=== PATIENT | female | born 1930 | race Caucasian/White ===

== ENCOUNTER 2016-12-20 10:25 | Emergency (ER) | payer MEDICARE, BC ==
[~2016-12-20] VITALS: Ht 170.2 cm; Wt 59.1 kg
[~2016-12-20 10:25] MED LIST: ACTONEL150 MG PO; ADVAIR IH; ALLOPURINOL300 MG PO; AMOXICILLIN/CLA1 TA1 PO; B-121000 MCG PO; BACTRIM DS 8001 TAB PO; CALCIUM 600600 M2 PO; CARDIZEM CD 18180 MG PO; CEPHALEXIN250 M1 PO; CLEOCIN HCL300 MG PO; CYTOTEC 20200 MCG/T1 PO; DAYPRO600 MG PO; DEXAMETHASONE4 MG PO; DIFLUCAN PO; DILANTIN 100MG100 MG PO; DILTIAZEM CD180 MG PO; DITROPAN 5MG TAB5 MG PO; FOLIC ACID 11 MG/TA1 PO; FOLIC ACID1 MG PO; LEVAQUIN 750MG750 M1 PO; LISINOPRIL20 MG PO; LOPRESSOR 225 MG/TAB PO; LORTAB 7.5/5001 TAB PO; LOZOL 2.5M2.5 MG/TAB PO; METHOTREXA2.5 MG/TAB PO; METOPROLOL25 MG PO; MILLIPRED DP5 MG PO; MIRALAX PA17 GM/Dose PO; MISOPROSTOL; MYRBETR25MG PO; NORCO 325 MG-7.1 TAB PO; NYSTATIN 100MU/ML PO; OSCAL 500 TAB500 MG PO; OXYBUTYNIN5 MG PO; PLAVIX 75MG TAB75 MG PO; PRAVACHOL 40MG40 MG PO; PRAVASTATIN40 MG PO; PREDNISONE 5MG5 MG PO; PREDNISONE10 MG PO; PREDNISONE20 MG PO; PRINIVIL10 MG PO; RT ADVAIR 228 DISKUS IH; SENOKOT S 50 MG1 TAB PO; SULFASALAZINE; SYNTHROID0.05 MG/TA PO; SYNTHROID0.1 MG/TAB PO; TESSALON P100 MG/CAP PO; TOPROL XL25 MG PO; TREXALL7.5 MG PO; TYLENOL 325MG325 MG PO; TYLENOL 500MG500 MG PO; ULTRAM 50MG TAB50 MG PO; VASOTEC10 MG PO; VENTOLIN0.09 MG IH; VITAMIN D1000 IU PO; XARELTO STARTER20 MG PO; ZITHROMAX 250M250 MG PO; ZOMETA INJ4 MG/VIAL IV; ZOMETA4 MG/5 ML IV
[2016-12-20 10:31] VITALS: BP 123/63; TEMP 98.6
[2016-12-20 11:25] LABS: ADJUSTED CALCIUM 9.5 mg/dL (8.4-10.2); ALBUMIN 3.9 gm/dL (3.5-5.0); BILIRUBIN,TOTAL 0.6 mg/dL (0.0-1.0); C-REACTIVE PROTEIN 6.1 mg/dL (0.0-0.9); CALCIUM 9.4 mg/dL (8.4-10.2); CREATININE, serum 0.98 mg/dL (0.52-1.25); POTASSIUM 4.3 mmol/L (3.4-5.0); TOTAL PROTEIN 6.8 gm/dL (6.4-8.2)
[2016-12-20 11:33] LABS: MEAN CELL VOLUME 99 fl (80.0-100.0); MEAN CORPUSCULAR HGB CONC 32 g/dl (33.0-37.0); PLATELET COUNT 324 K/mm3 (130-400); RED BLOOD COUNT 3.28 M/mm3 (4.10-5.30); REDCELL DISTRIBUTION WIDTH-CV 15.5 % (11.5-14.5)
[2016-12-20 11:34] LABS: HEMATOCRIT 32.3 % (37.0-47.0); HEMOGLOBIN 10.3 g/dl (12.5-16.0); MEAN CORPUSCULAR HEMOGLOBIN 31 pg (27.0-31.0)
[2016-12-20 11:35] LABS: ADD PATHOLOGY DIFF REVIEW NO
[2016-12-20] MEDS ORDERED: RT ADVAIR 228 DISKUS IH (11:57)
[2016-12-20] MEDS ORDERED: LOZOL 2.5M2.5 MG/TAB PO (11:58)
[2016-12-20] MEDS ORDERED: NORCO 325 MG-7.1 TAB PO (11:58)
[2016-12-20] MEDS ORDERED: MULTIPLE VITAMI1 CAP PO (12:00)
[2016-12-20] MEDS ORDERED: DITROPAN XL10 MG PO (12:01)
[2016-12-20] MEDS ORDERED: ULTRAM 50MG TAB50 MG PO (12:02)
[2016-12-20] MEDS ORDERED: B-121000 MCG PO (12:03)
[2016-12-20] MEDS ORDERED: CEPHALEXIN500 M1 PO (12:03)
[2016-12-20] MEDS ORDERED: PROAIR HFA0.09 MG/AC IH (12:32)
[2016-12-20] MEDS ORDERED: ZITHROMAX Z PA250 MG PO (12:32)
[2016-12-20 13:00] VITALS: PULSE 87
[2016-12-20 13:01] LABS: BAND 6 % (0-10); NEUTROPHILS 75 % (42.0-75.2); TOTAL CELLS COUNTED 100
[2016-12-20 13:02] LABS: ANISOCYTOSIS 1+; PLATELET ESTIMATE INCREASED (NORMAL)
== END 2016-12-20 13:01 | disposition home or self-care (01) ==
LOC: COL.ER 10:25
PROVIDERS: Family Medicine
DX: J20.9 Acute bronchitis, unspecified (principal); M06.9 Rheumatoid arthritis, unspecified
CPT/HCPCS: J0696; Q9967

== ENCOUNTER 2018-07-03 11:47 | Outpatient (RCR) | payer MEDICARE, BC ==
[2018-07-03] VITALS (9 sets, daily range): BP systolic 148–185; BP diastolic 58–90; PULSE 55–92; TEMP 97.1–98.1
[~2018-07-03] VITALS: Ht 170.2 cm; Wt 55.0 kg
[~2018-07-03 11:47] MED LIST changes: +CEPHALEXIN500 M1 PO; +DITROPAN XL10 MG PO; +MULTIPLE VITAMI1 CAP PO; +PROAIR HFA0.09 MG/AC IH; +ZITHROMAX Z PA250 MG PO
[2018-07-03] MEDS ORDERED: VITAMIN D 1001000 IU (17:34)
[2018-07-03] MEDS ORDERED: PREDNISONE10 MG (17:35)
[2018-07-03] MEDS ORDERED: TYLENOL 325MG325 MG PO (17:36)
[2018-07-03] MEDS ORDERED: ZOMETA4 MG/5 ML IV (17:38)
== END 2018-07-03 20:00 | disposition home or self-care (01) ==
LOC: EUO 11:47
DX: C90.01 Multiple myeloma in remission (principal); D63.0 Anemia in neoplastic disease; M06.9 Rheumatoid arthritis, unspecified
CPT/HCPCS: J1644; J7050; P9016

== ENCOUNTER 2018-11-03 13:00 | Outpatient (RCR) | payer MEDICARE, BC ==
[2018-11-03] VITALS (10 sets, daily range): BP systolic 138–184; BP diastolic 67–89; PULSE 66–100; TEMP 97.3–97.8
[~2018-11-03 13:00] MED LIST changes: +PREDNISONE10 MG; +VITAMIN D 1001000 IU
== END 2018-11-03 18:22 ==
LOC: EUO 13:00
DX: C90.00 Multiple myeloma not having achieved remission (principal)
CPT/HCPCS: J1644; J7050; P9040

== ENCOUNTER 2018-11-21 10:15 | Outpatient (RCR) | payer MEDICARE, BC ==
[2018-11-21] VITALS (10 sets, daily range): BP systolic 134–155; BP diastolic 60–97; PULSE 63–77; TEMP 97.5–98.3
[~2018-11-21] VITALS: Ht 170.2 cm; Wt 56.4 kg
== END 2018-11-21 18:00 | disposition home or self-care (01) ==
LOC: EUO 10:15
DX: C90.00 Multiple myeloma not having achieved remission (principal); M06.9 Rheumatoid arthritis, unspecified; D63.8 Anemia in other chronic diseases classified elsewhere
CPT/HCPCS: J1644; J7050; P9016

== ENCOUNTER 2018-11-29 18:56 | Emergency (ER) | payer MEDICARE, BC ==
[~2018-11-29] VITALS: Ht 170.2 cm; Wt 54.5 kg
[2018-11-29 19:05] VITALS: BP 143/73; TEMP 99.7
[2018-11-29] MEDS ORDERED: SYNTHROID0.1 MG/TAB PO (19:20)
[2018-11-29] MEDS ORDERED: VITAMIN D 1001000 IU (19:20)
[2018-11-29] MEDS ORDERED: FOLIC ACID 11 MG/TA1 PO (19:21)
[2018-11-29] MEDS ORDERED: PREDNISONE10 MG PO (19:21)
[2018-11-29] MEDS ORDERED: B-121000 MCG PO (19:22)
[2018-11-29] MEDS ORDERED: TOPROL XL 25MG25 MG PO (19:22)
[2018-11-29] MEDS ORDERED: DITROPAN 5MG TAB5 MG PO (19:22)
[2018-11-29] MEDS ORDERED: TYLENOL 325MG325 MG PO (19:23)
[2018-11-29] MEDS ORDERED: PRAVACHOL 40MG40 MG PO (19:23)
[2018-11-29] MEDS ORDERED: METHOTREXA2.5 MG/TAB PO (19:24)
[2018-11-29] MEDS ORDERED: ZOMETA4 MG/5 ML IV (19:24)
[2018-11-29] MEDS ORDERED: VENTOLIN0.09 MG IH (19:24)
[2018-11-29 21:00] VITALS: PULSE 76
== END 2018-11-29 21:07 | disposition home or self-care (01) ==
LOC: COL.ER 18:56
DX: S22.32XA Fracture of one rib, left side, initial encounter for closed fracture (principal); S51.012A Laceration without foreign body of left elbow, initial encounter; I10 Essential (primary) hypertension; E03.9 Hypothyroidism, unspecified; J45.909 Unspecified asthma, uncomplicated; M06.9 Rheumatoid arthritis, unspecified; Z87.891 Personal history of nicotine dependence; W07.XXXA Fall from chair, initial encounter; Y93.E1 Activity, personal bathing and showering; Y92.002 Bathroom of unspecified non-institutional (private) residence as the place of occurrence of the external cause

== ENCOUNTER 2019-01-24 12:45 | Outpatient (RCR) | payer MEDICARE, BC ==
[~2019-01-24 12:45] MED LIST changes: +TOPROL XL 25MG25 MG PO
== END 2019-04-02 | disposition home or self-care (01) ==
LOC: WSPT
DX: M06.9 Rheumatoid arthritis, unspecified (principal)

== ENCOUNTER 2019-06-25 10:14 | Emergency (ER) | payer MEDICARE, BC ==
[~2019-06-25] VITALS: Ht 157.5 cm; Wt 52.7 kg
[~2019-06-25 10:14] MED LIST changes: +SYNTHROID0.088 MG/T PO; +VITAMIN D 1001000 IU PO
[2019-06-25 11:04] LABS: MEAN CELL VOLUME 95 fl (80.0-100.0); MEAN CORPUSCULAR HGB CONC 32 g/dl (33.0-37.0); MEAN PLATELET VOLUME 8.5 fl (7.4-10.4); PLATELET COUNT 372 K/mm3 (130-400); RED BLOOD COUNT 2.91 M/mm3 (4.10-5.30); REDCELL DISTRIBUTION WIDTH-CV 18.3 % (11.5-14.5)
[2019-06-25 11:07] LABS: HEMATOCRIT 27.6 % (37.0-47.0); HEMOGLOBIN 8.7 g/dl (12.5-16.0); MEAN CORPUSCULAR HEMOGLOBIN 30 pg (27.0-31.0)
[2019-06-25 11:14] LABS: ALBUMIN 3.3 gm/dL (3.5-5.0); BILIRUBIN,TOTAL 0.4 mg/dL (0.0-1.0); CALCIUM 8.6 mg/dL (8.4-10.2); CREATININE, serum 0.78 (0.52-1.25); POTASSIUM 4.3 mmol/L (3.4-5.0); TOTAL PROTEIN 5.8 gm/dL (6.4-8.2)
[2019-06-25 12:32] LABS: BAND 1 % (0-10); EOSINOPHIL 3 % (0-4); LYMPHOCYTE 11 % (20.0-51.0); NEUTROPHILS 80 % (42.0-75.2); PLATELET ESTIMATE NORMAL (NORMAL); SCHISTOCYTES 2+
[2019-06-25 12:33] LABS: OVALOCYTES 2+
[2019-06-25 12:44] LABS: COLLECTION METHOD CLEAN CATCH
[2019-06-25 12:55] LABS: MUCOUS Present /lpf; PH 6 (5-8); SQUAMOUS EPITHELIAL 0-2 /hpf; URINE APPEARANCE Clear; URINE BACTERIA Rare /hpf; URINE BILIRUBIN Negative (NEGATIVE); URINE BLOOD Negative (NEGATIVE); URINE COLOR Yellow; URINE GLUCOSE Negative (NEGATIVE); URINE KETONE Trace (NEGATIVE); URINE LEUKOCYTE ESTERASE 1+ (NEGATIVE); URINE NITRATE Positive (NEGATIVE); URINE PROTEIN(semi-quant) Negative (NEGATIVE); URINE RBC 0-2 /hpf; URINE UROBILINOGEN Negative (NEGATIVE)
[2019-06-25] MEDS ORDERED: CEFTIN 250250 MG/TAB PO ×2 (14:04→15:04)
--- NOTE | 2019-06-25 14:53 | NUR ---
JOANNE acosta responded to a social service consult for the patient due to her feeling too weak to return home. JOANNE acosta met with the patient to discuss care options. Physical therapy met with the patient and reports the patient is appropriate for IPR or long term. The patient chose [facility] 1st choice and [facility] (private pay) 2nd choice. Marina, IPR Director met with the patient and will accept the patient for services. The patient was agreeable to going upstairs, this day. JOANNE acosta and Marina collaborated the above information with the patient's nurse.
[2019-06-25 17:00] VITALS: BP 134/72; PULSE 89
[2019-06-25] MEDS ORDERED: LOPRESSOR 225 MG/TAB PO (19:50)
[2019-06-25] MEDS ORDERED: DITROPAN XL10 MG PO (19:52)
[2019-06-25] MEDS ORDERED: ZESTRIL 10MG10 MG PO (20:01)
[2019-06-25] MEDS ORDERED: OYSTER SHELL C500 MG PO (20:05)
[2019-06-25] MEDS ORDERED: ACTONEL150 MG PO (20:06)
== END 2019-06-25 17:00 | disposition home or self-care (01) ==
LOC: COL.ER 10:14
PROVIDERS: Physician Assistant
DX: N39.0 Urinary tract infection, site not specified (principal); D64.9 Anemia, unspecified; E03.9 Hypothyroidism, unspecified; Z90.49 Acquired absence of other specified parts of digestive tract
CPT/HCPCS: A4216; J0696; J7030

== ENCOUNTER 2019-06-25 15:46 | Inpatient (IN) | payer MEDICARE, BC ==
[~2019-06-25] VITALS: Ht 167.6 cm; Wt 53.6 kg
[~2019-06-25 15:46] MED LIST changes: +CEFTIN 250250 MG/TAB PO
[2019-06-25 17:21] VITALS: BP 143/85; PULSE 105; TEMP 98.1
--- NOTE | 2019-06-25 18:10 | NUR ---
Report from BOB Loving RN, pt arrived via wheelchair and aid(s) assisted pt to bed, turned bed alarm on, introduced self to pt, she is alert, pleasant, seems oriented and without confusion. Provided water, pt states she is a DNR.
[2019-06-25] MEDS ORDERED: LOPRESSOR 225 MG/TAB PO (19:50)
[2019-06-25] MEDS ORDERED: DITROPAN XL10 MG PO (19:52)
--- NOTE | 2019-06-25 20:00 | NUR ---
PATIENT RESTING IN BED REQUESTING TYLENOL WHEN AVAILABLE DUE TO C/O ARTHRITIC PAIN TO BLE CURRENTLY. BED ALARM ON.
[2019-06-25] MEDS ORDERED: ZESTRIL 10MG10 MG PO (20:01)
[2019-06-25] MEDS ORDERED: OYSTER SHELL C500 MG PO (20:05)
[2019-06-25] MEDS ORDERED: ACTONEL150 MG PO (20:06)
--- NOTE | 2019-06-25 20:18 | NUR ---
Clarified questions on meds with patient. She states she did not take her methotrexate today. States she takes six tabs every Tuesday. States she takes B12 Wednesdays. States she takes folic acid daily.
--- NOTE | 2019-06-26 00:58 | NUR ---
RESTING ON LEFT SIDE, PILLOW TO BACK PER PATIENT REQUEST FOR SUPPORT. DOES NOT AROUSE WHEN ROOM ENTERED. BREATHING NONLABORED AND EVEN. BED ALARM ON.
--- NOTE | 2019-06-26 01:49 | NUR ---
PATIENT CALLING OUT, WANTING HELP FROM NURSE, CALL LIGHT UNDER RIGHT HAND BUT PATIENT NOT HOLDING CALL LIGHT. REPOSITIONED INTO SUPINE POSITIONING. ENCOURAGED PATIENT TO HOLD DRINKING CUP, DOES NOT ATTEMPT TO HANDLE CUP HERSELF AT THIS TIME. FOLLOWS COMMANDS AT THIS TIME.
[2019-06-26 05:22] VITALS: BP 143/61; PULSE 86; TEMP 97.9
--- NOTE | 2019-06-26 05:45 | NUR ---
RESTING QUIETLY IN BED. BED ALARM ON.
--- NOTE | 2019-06-26 06:11 | NUR ---
PATIENT REFUSED TO HAVE SALINE LOCK REMOVED AT THIS TIME.
--- NOTE | 2019-06-26 07:00 | NUR ---
awake and sitting up in bed ready for breakfast, bedside shift report received from MARCELLO Valentino
--- NOTE | 2019-06-26 07:05 | NUR ---
Patient resting in bed quietly during shift change report given to day nurse. Bed alarm on.
--- NOTE | 2019-06-26 08:15 | NUR ---
resting in bed and requesting to get up to void, with max assist of 2 she was able to get up to bedside commode but had much difficulty standing and moving to commode and then to recliner, full assessment completed see interventions for further info, bilateral lower extremities very dry and scaley, has 1.5 stage II pressure ulcer on right medial ankle bone and covered with mepiplex, also has 1cm stage II ulcer to first toe on the right foot and appears to have open area between great toe and first toe but unable to move toes apart to assess well, patient states Dr Chatterjee has been assisting her with healing these wounds, bandaid placed over toe, also has stage I ulcer to left heel and mepiplex placed, physical therapy then in to work with patient and she was able to stand and ambulate to door with only 1 assist
--- NOTE | 2019-06-26 10:18 | NUR ---
occupational therapy in to work with patient and assist with bathing
--- NOTE | 2019-06-26 11:52 | NUR ---
patient states she has been incontinent of urine, encouraged her to call when she needs to void and we will help her up, verbalizes understanding, incontinent care provided, sitting up in chair eating lunch
--- NOTE | 2019-06-26 13:09 | NUR ---
occupational therapy in to work with patient
--- NOTE | 2019-06-26 13:59 | NUR ---
JAY JAY met with the patient to complete initial intake, as the patient is new to [facility]. The patient lives in [place] with her , Aakash (ph#[phone]). She reports needing some assistance with ADLs prior to [facility] and has 2-3 walkers and a chair lift for their stairs. She states that her provides her with assistance for ADLs. The patient's PCP is Dr. Min Chatterjee and she receives her medications at [facility]. She reports no difficulties obtaining her meds. The patient does not have advanced directives in EMR, but she states that she does have them completed and that her is her DPOA-HC. A family meeting with her was tentatively scheduled for tomorrow at 1400. The patient reports that she would like to speak to her about the this and can notify JAY JAY if this time does not work. JAY JAY provided the patient with JAY JAY's phone number. JAY JAY had received a phone call from Uzma at [facility]. Uzma reports that the patient's PCP had been working with them to get the patient set up with their services. She states that they would be able to pick her up when ready to discharge from [facility]. JAY JAY informed the patient of this and will continue to follow.
--- NOTE | 2019-06-26 14:33 | NUR ---
worked with occupational therapy and assisted with getting dressed
--- NOTE | 2019-06-26 15:05 | NUR ---
physical therapy in to work with patient
[2019-06-26 18:15] VITALS: BP 119/56; PULSE 86; TEMP 98
--- NOTE | 2019-06-26 20:45 | NUR ---
Patient rests in bed reading. Disoriented to place and keeps inquiring why she can't go upstairs to her bedroom tonight. Attempts to reorient and explain DX and needing ABT and therapy to regain strength. Pleasant. Asks where her is and reviewed he's at home and offered to assist to call him. Patient reports she knows he's at home and has talked with him recently. Legs are very dry/reddened and scaly and lotion applied states she's seen Dr. Chatterjee and [facility] for years for sores on feet-"don't seem to get better though". Heel protectors applied and bandaid removed right second toe sore and cleansed with saline-1 cm in diameter red center and scant yellow drainage. Vertical sore noted to inner left great toe and cleansed with saline/whitish center. Heels floated on pillow. HS meds along with tylenol per request reviewed and given. Denies pain at this time.
--- NOTE | 2019-06-26 22:44 | NUR ---
Patient rests with eyes closed on left side. Respirations with ease.
--- NOTE | 2019-06-27 03:00 | NUR ---
Patient continues resting quietly on left side with eyes closed. Respirations with ease.
[2019-06-27 04:21] VITALS: BP 123/63; PULSE 63; TEMP 97.7
--- NOTE | 2019-06-27 09:04 | NUR ---
Report from MARCELLO Mueller. Pt took pills a few at a time with thin liquids with difficulty swallowing them, provided applesauce and crackers at bedside if needed. Pt sitting bedside with glasses and yellow grippers in place. Tylenol for pain.
--- NOTE | 2019-06-27 09:42 | NUR ---
JAY JAY followed up with the patient about having a family meeting at 1400 today. The patient reports that she did not have a chance to speak to her and was okay with SW contacting her . JAY JAY contacted the patient's , Aakash, and the family meeting was scheduled for 1400 today. SW to continue to follow.
--- NOTE | 2019-06-27 16:05 | NUR ---
SW attended a family meeting with patient and the patient's , Aakash. Also present was IPR Director, PT, OT, and ST. IPR Director, Marina, started by explaining the purpose of the meeting. PT/OT/ST then discussed the patient's progress and addressed the patient's confusion. The patient's reports that he is aware that she have been a bit more confused lately. He states that he is not as strong as he used to be and cannot lift her up or would be able to help her out as much as he used to. Marina discussed how we would re-evaluate the patient next Tuesday. The patient and her were in agreeance to this plan. The team answered all questions. JAY JAY then followed up with the patient to present and review the IPR Team Conference Note. The patient had no other questions or concerns for SW at this time. SW to continue to follow.
[2019-06-27 16:52] VITALS: BP 124/56; PULSE 94; TEMP 98.2
--- NOTE | 2019-06-27 19:40 | NUR ---
WOUND ASSESSMENT: Left le) Lateral ankle 0.8 cm round wound with yellow slough. Applied silver gauze, mepilex, dated. 2) Lateral heel ~1cm dry scab. Heel protector under socks 3) Lateral foot, proximal to pinky toe ~1cm dry scab 4) Tip of great toe non-blanchable, applied telfa w/ paper tape. Right le) Medial ankle 1.2 x 2 cm shallow ulcer with yellow slough, cleansed with bath wipe, applied silver gauze, mepilex, dated. 6) Second toe open, bleeding sore, silver gauze secured with steris, telfa secured with steris. 7) Under great toe: ~1 cm dry scab 8) Between toes 3&4: yellow odorous slough removed with bath wipe, applied silver gauze 9) Between toes 4&5: yellow odorous slough removed with bath wipe, applied silver gauze
--- NOTE | 2019-06-27 19:45 | NUR ---
Report to MARCELLO Mueller. Pt to chair with call lt in reach, pleasantly confused at time, re-orients well. Yellow gripper socks over heel protectors in place. Pt pleasant. Pt also had a scab on the left side of her sikh that she scratched part way off. Applied lotion to soften.
--- NOTE | 2019-06-27 20:45 | NUR ---
Patient resting in bed with eyes closed. Woke patient up for HS meds and tylenol given per request prior to sleep. Denies pain at this time. Heel protectors on and heels floated on pillow. Alert to person, place, time of day but not to year. Pleasant.
--- NOTE | 2019-06-28 02:00 | NUR ---
Rests with eyes closed. Respirations with ease.
[2019-06-28 05:31] VITALS: BP 133/79; PULSE 68; TEMP 97.7
--- NOTE | 2019-06-28 09:19 | NUR ---
Initial visit; Patient thanked Sander Setter for looking in on her and offering spiritual care.
--- NOTE | 2019-06-28 09:33 | NUR ---
Patient working with OT at this time. Reports generalized aching and given prn Tylenol. Patient is not confused this morning. She is alert to surrounding, year, month, , name and location. She was confused about when she arrived to [facility] though. Denies questions at this time.
--- NOTE | 2019-06-28 10:06 | NUR ---
Patient received a k-pad to help to keep her warm. She reported that her room was very cold. This will be discussed with maintenance.
--- NOTE | 2019-06-28 10:11 | NUR ---
Call placed to maintenance regarding room being too cold. A new work order was placed. Patient reports that she is use to a temp of 72 degrees, but wouldl like her room to be warmer then it currently is.
--- NOTE | 2019-06-28 13:44 | NUR ---
Maintenance adjusted temperture in patient room. Patient was updated on this. She is to notify staff if it needs to be adjusted again.
--- NOTE | 2019-06-28 15:32 | NUR ---
Patient reported that she had been asked multiple times about her code status and she has for sure chosen to be a DNR. DNR sticker was placed on patient chart and is in the EMR. Patient's also clarified that she does have an allergy from years ago to Codeine and pseudoephedrine. Front of patient's physical chart was update.
--- NOTE | 2019-06-28 16:05 | NUR ---
Admission QIM scores were reviewed by the team. Code of 1 chosen for toilet transfers was determined by team discussion to be the most usual performance before interventions for this patient during the assessment period. Code of 3 chosen for rolling left to right was determined by team discussion to be the most usual performance for this patient during the assessment period. Code of 3 chosen for sit to lying was determined by team discussion to be the most usual performance before interventions for this patient during the assessment period. Code of 3 chosen for lying to sitting on side of bed was determined by team discussion to be the most usual performance before interventions for this patient during the assessment period.--Marina Moreno, PD
[2019-06-28 18:36] VITALS: BP 101/46; PULSE 95; TEMP 98.1
--- NOTE | 2019-06-28 21:00 | NUR ---
PT SITTING IN RECLINER. WATCHING TV. PLEASANT AND COOPERATIVE. ALITTLE FORGETFUL. THOUGHT IT WAS THE YEAR 2026. PORTHACATH TO RT CHEST. NOT ACCESSED. MUTLIPLE DRSGS TO BILAT FEET/ ANKLES. CDI. PT ADMITS TO SOME ACHINESS. TOO SOON FOR TYLENOL. REVIEWED SAFETY PRECAUTIONS WITH PT. AGREEABLE. CALL LIGHT IN REACH. BED ALARM SET.
[2019-06-29 06:14] VITALS: BP 138/62; PULSE 77; TEMP 97.7
[2019-06-29 07:44] LABS: BASO # 0.1 (0.0-0.2); BASO % 0.8 % (0.0-2.0); EOS # 0.2 (0.0-0.7); GRAN % 75.2 % (42.2-75.2); LYMPH # 1.1 (1.2-3.4); LYMPH % 10.4 % (20.0-51.0); MEAN CELL VOLUME 95 fl (80.0-100.0); MEAN CORPUSCULAR HGB CONC 32 g/dl (33.0-37.0); MEAN PLATELET VOLUME 8.7 fl (7.4-10.4); MONO # 1.1 (0.1-0.6); MONO % 10.8 % (1.7-9.3); PLATELET COUNT 409 K/mm3 (130-400); RED BLOOD COUNT 2.97 M/mm3 (4.10-5.30); REDCELL DISTRIBUTION WIDTH-CV 18.6 % (11.5-14.5)
[2019-06-29 07:45] LABS: HEMATOCRIT 28.2 % (37.0-47.0); HEMOGLOBIN 8.9 g/dl (12.5-16.0); MEAN CORPUSCULAR HEMOGLOBIN 30 pg (27.0-31.0)
[2019-06-29 07:57] LABS: CALCIUM 9.1 mg/dL (8.4-10.2); CREATININE, serum 0.75 (0.52-1.25); MAGNESIUM 1.9 mg/dL (1.6-2.3)
--- NOTE | 2019-06-29 08:32 | NUR ---
Patient resting in recliner at this time, call light in reach and chair alarm on. Patient in pleasent mood.
[2019-06-29 15:52] VITALS: BP 114/56; PULSE 91; TEMP 97.8
--- NOTE | 2019-06-29 16:58 | NUR ---
JAY JAY met with the patient and her , Ed, to follow up. The patient reports that she is doing well and making some progress. She states that she is very pleased with her stay here. The patient and her had no other questions or concerns at this time. SW to continue to follow.
--- NOTE | 2019-06-29 20:56 | NUR ---
Patient resting in bed at this time. She attended all therapies today. She was complaining of generalized pain this shift and given prn Tylenol with good effect. Patient was not using call light this afternoon and thought at one time that staff had all gone for the day. She was asking visitors to help her with picking up her meal and taking her to the bathroom. This nurse over heard patient talking with visitors when taking care of patient in room next to hers and went over to her room and assisted her immediatly. Patient was reoriented to place and was asured that she staff was available to assist her, but that she would need to use her call light. She voiced understanding. Will continue to monitor. Reported off to night nurse.
--- NOTE | 2019-06-29 21:30 | NUR ---
PT SITTING IN RECLINER. PLEASANT AND COOPERATIVE. TAKES PILLS WHOLE WITH H20. PT HAS A THERMOS CUP WITH LID. ASKED PT WHAT SHE WAS DRINKING FROM THIS CONTAINER. PT REPLIED ALITTLE WHITE WINE. PT REPORTED HER BROUGHT IT IN FOR HER. REMOVED CUP AT THIS TIEM. WILL HAVE DON SPEAK WITH . ASSISTED PT WITH UNDRESSING. ALLOW PT TO REMOVE UB CLOTHING PER SELF. THIS NURSEHAD TO LEAVE ROOM FOR A FEW MINUTES. CHAIR ALARM SOUNDING. PT GOT UP FROM RECLINER. EASY FORGETFUL. CONTINUED TO ASSIST PT WITH THREADING LEGS INTO PANTS. THEN PT STOOD UP SLOWLY WHILE NURSE PULLED PANTS UP OVER HIPS. PT WEARS BRIEFS IN OCCASIONAL INCONTINENCE. NOTED SIGNIFICANT KYPHOSIS. PT AMB SLOWLY TOWARD BED. NEEDED ASSISTANCE LIFTING LEGS. CALL LIGHT IN REACH. BED ALARM SET.DENIES ANY FURTHER NEEDS.
[2019-06-30 03:59] VITALS: BP 132/58; PULSE 67; TEMP 97
--- NOTE | 2019-06-30 14:44 | NUR ---
0800SHE WAS GOTTEN READY BY STAFF. 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 SHE IS ABLE TO STAND AND AMBULATE. GAIT IS STEADY WITH THE WALKER. PT SHOWERED WITH OT. 0900OT LET NURSE KNOW THAT PT WAS READY TO GET HER DRESSING ON HER FEET CHANGED. NURSE CHANGED DRESSING TO RIGHT SECOND TOE. AREA LOOKS LIKE AN ABRASION. HERE TOES ARE ALL BENT UNDER THE FEET. THERE IS AQUA CELL BETWEEN HER 4TH AND 5TH TOES. ON THE LEFT FOOT THERE IS AN ABRASION TO THE GREAT TOE. DRESSING WAS CHANGED. 1230PT STARTED TO EAT HER MEAL. SHE ATE MOST OF THE MEAL, THEN ASKED FOR A FIONA CRACKER. 1300PT SLEEPING IN HER CHAIR. SHE WAS CHECKED ON SEVERAL TIMES. SHE SEEMS COMFORTABLE. 1330GIVEN LOVENOX INJECTION IN ABDOMEN. NO BRUISING NOTED TO AREA. ASKED PT IF SHE WANTED TO GET INTO BED, REFUSED. ASKED PT IF SHE WANTED TO HAVE HER LEGS UP, REFUSED. 1500FAMILY HERE TO VISIT.
[2019-06-30 17:46] VITALS: BP 120/62; PULSE 84; TEMP 97.4
--- NOTE | 2019-06-30 21:51 | NUR ---
Pt doing ok. Alert and oriented with VSS. Took PM meds with no issue. Transferred to bed x1 assist. Heel protectors in place. Denies pain or needs at this time. Call light within reach, will continue to monitor
[2019-07-01 05:00] VITALS: BP 150/60; PULSE 86; TEMP 97.9
--- NOTE | 2019-07-01 10:42 | NUR ---
PT WAS GOTTEN OUT OF BED BY STAFF. SHE MOVES WELL ONCE SHE GETS UP. SHE IS A ONE ASSIST TO TRANSFER FROM BED TO BR AND CHAIR. PT CAN CLEAN HERSELF AFTER VOIDING. SHE CHOSES TO STAY IN [facility] TODAY.SHE CAN OPEN ALL HER MEAL CARTONS WITHOUT ASSIST,S SET UP ONLY. SHE IS IN RECLINER WITH CALL LIGHT IN REACH.
--- NOTE | 2019-07-01 11:33 | NUR ---
TYLENOL 650 MG GIVEN FOR LEFT HIP PAIN, 10/25. NURSE COULD HERE THE HIP POPPING.
[2019-07-01 17:01] VITALS: BP 118/50; PULSE 91; TEMP 97.7
--- NOTE | 2019-07-01 18:19 | NUR ---
JUST ASSISTED PT INTO BR. SHE HAS SOME DIFFICULTY STANDING AT FIRST. BUT AFTER YOU STEADY HER SHE TAKES OFF AND DOES PRETTY WELL. HER GAIT IS SHUFFULING BUT STEADY. PT HAD A LARGE SOFT FORMED BM. PT SEEMS A LITTLE CONFUSED. PT IS SETTLED IN HER CHAIR WITH HER PJ BOTTOMS ON. SKIN IS PINK ON HER BOTTOM FROM THE TOILET. CALL LIGHT IN REACH.
--- NOTE | 2019-07-01 21:00 | NUR ---
PT SITTING IN RECLINER. AGREED TO AMB IN [place]ART[place]. NOTED SIGNIFICANT KYPHOSIS WITH POSTURE. ABLE TO STAND WITH SBA. FEET ARE DISFIGURED FROM ARTHRITIS. DIFFICULT TO AMB. AMB WITH WHEELED WALKER ABOUT 25FT AND BACK. BACK TO RECLINER. HAD TO STOP OCCASIONALLY TO CATCH HER BREATH. CALL LIGHT IN REACH. CHAIR ALARM SET.
--- NOTE | 2019-07-01 22:32 | NUR ---
PT VOIDING W/O DIFFICULTY. NO BURNING, FREQUENCY OR URGENCY. URINE CLEAR YELLOW. NO FLANK PAIN. AFEBRILE.
[2019-07-02 04:52] VITALS: BP 158/83; PULSE 74; TEMP 97.4
--- NOTE | 2019-07-02 12:11 | NUR ---
Informed that pt had wine in the room the other night, and that this is not acceptable. He denies bringing her any, states it may have been from one of her other visitors.
--- NOTE | 2019-07-02 12:48 | NUR ---
Pt reported nausea this morning, states no problem now. Took morning meds at this time.
--- NOTE | 2019-07-02 13:56 | NUR ---
SW met with the patient to follow up after the weekend. The patient was reading the paper. She states that she is doing well and had no complaints. She states that PT is recommending that she continue to work on some more stretches and that she has been doing things she is not suppose to. SW informed her how we would be having the team meeting on Tuesday and that SW would follow up with her afterwards on any tentative plans. The patient had no other questions or concerns for SW at this time. SW to continue to follow.
[2019-07-02 15:25] VITALS: BP 119/61; PULSE 84; TEMP 98.6
--- NOTE | 2019-07-02 19:55 | NUR ---
Patient up in chair during shift change report from day shift nurse, chair alarm on. No other needs reported.
--- NOTE | 2019-07-02 21:33 | NUR ---
Changed dressings to BLE. Left le) Lateral ankle: 0.5cm ulcer with ni/reno slough, cleansed with bath wipe, applied silvasorb gel, mepilex, dated 2) Dry scab to lateral/proximal pinky toe, CHRISTINA 3) Tip of great toe- blanchable redness 1.5cm, applied telfa and paper tape Right le) Medial ankle: 1.2x1.7cm ulcer with moderate ni/reno slough, cleansed with bath wipe, only wound that is painful to pt, applied silvasorb gel, mepilex, dated- lated changed by this nurse on 06/27, likely needs changed more often 2) 2nd toe wound- drying with silver gauze in scab, emacerated, applied silvasorb gel, silver gauze, secured with three steris 3) Cleansed between toes, loosened up dried yellow/black flakes, applied silver gauze between all toes
--- NOTE | 2019-07-03 02:05 | NUR ---
Resting in bed quietly, does not arouse when room entered. Bed alarm on.
[2019-07-03 04:59] VITALS: BP 125/57; PULSE 73; TEMP 98.3
--- NOTE | 2019-07-03 06:17 | NUR ---
RESTING IN BED WITH EYES CLOSED, AROUSED EASILY WITH NAME CALLED, AGREED TO SUPP FOR CONSTIPATION. REQUESTED/GIVEN TYLENOL FOR PAIN TO LEFT HIP. NO OTHER NEEDS CURRENTLY. BED ALARM ENGAGED.
--- NOTE | 2019-07-03 07:50 | NUR ---
UP TO BATHROOM DURING SHIFT CHANGE REPORT GIVEN TO DAY SHIFT NURSE, THEN UP IN CHAIR AFTER BATHROOM ACTIVITY, CHAIR ALARM ENGAGED
--- NOTE | 2019-07-03 08:13 | NUR ---
Patient resting in recliner at this time, call light in reach and alarm is on. Patient is brushing her teeth at this time and reports sleeping well at this time.
[2019-07-03 15:12] VITALS: BP 105/58; PULSE 88; TEMP 97.7
--- NOTE | 2019-07-03 19:26 | NUR ---
PATIENT UP IN CHAIR DURING SHIFT CHANGE REPORT FROM DAY SHIFT NURSE. CHAIR ALARM ENGAGED.
--- NOTE | 2019-07-03 19:57 | NUR ---
Patient attended all therapies today. She had a large bowel movement this morning following being given a suppository. Patient also had loose bowel movements following that this morning. Patient was incontinent at times and uses a pad in her pull up briefs. Patient did get her pants wet this morning, but refused to have staff change them during the day. stopped by to visit today and brought her some cookies. Patient denies any questions at this time. Reported off to night nurse.
--- NOTE | 2019-07-04 00:30 | NUR ---
RESTING IN BED QUIETLY, EYES CLOSED, DOES NOT AWAKEN WHEN ROOM ENTERED. BED ALARM ON.
[2019-07-04 03:20] VITALS: BP 135/59; PULSE 85; TEMP 97.6
--- NOTE | 2019-07-04 03:30 | NUR ---
UP TO BATHROOM, BED ALARM ON, PATIENT STATED SHE THOUGHT SHE WAS ALONE, PATIENT ORIENTED TO PLACE/PERSON/THAT IT WAS MIDDLE OF NIGHT. REQUESTED AND GIVEN PAIN MEDS.
--- NOTE | 2019-07-04 06:08 | NUR ---
REQUESTING TYLENOL WHEN NEXT AVAILABLE, C/O LEFT HIP PAIN AND FEELING THAT LEFT HIP IS NOT MOVING WELL WITH AMBULATING TO BATHROOM. WHEN BACK IN BED, BED ALARM ENGAGED
--- NOTE | 2019-07-04 08:26 | NUR ---
Patient resting in recliner, legs elevated, call light in reach, chair alarm on and eating her breakfast. Patient takes pills whole with water. Did not like her polish toast so was given some regular toast this am.
--- NOTE | 2019-07-04 15:44 | NUR ---
JAY JAY met with the patient to present and review the IPR Team Conference Note. JAY JAY discussed the patient's progress and the teams recommendation of a discharge for this Tuesday, 07/06, with [facility] for PT/OT. The patient reports that she is in agreeance to this plan and ready to get home. The patient had been set up with [facility] prior to IPR. JAY JAY provided the patient with Medicare.[employer]'s list of home health agencies that serve [place]. The patient chose [facility]. JAY JAY attempted to contact Uzma at [facility]. JAY JAY left her a message and faxed her a referral. JAY JAY then contacted the patient's to discuss the team's recommendation, her progress, and becoming mod I to go the bathroom. The patient's reports that he does not feel like he has all the support set up for the patient to discharge on Tuesday. He states that he prefers a discharge on Tuesday. He states that he has been working with a Geovanna (ph#[phone]) at Dr. Chatterjee's office for additional private duty services to help the patient get dressed. He states that he does not feel like he could assist the patient with getting her socks and shoes on. JAY JAY attempted to contact Geovanna at Dr. Bradley office. Geovanna was gone for the day and JAY JAY left her a message. JAY JAY updated IPR Director and will continue to follow.
[2019-07-04 16:45] VITALS: BP 103/61; PULSE 90; TEMP 98.4
--- NOTE | 2019-07-04 20:00 | NUR ---
UP IN CHAIR DURING SHIFT CHANGE REPORT FROM DAY SHIFT NURSE, TALKING ON PHONE, CHAIR ALARM ENGAGED, SEE MAR FOR TYLENOL GIVEN FOR CHRONIC LEFT HIP PAIN.
--- NOTE | 2019-07-04 20:31 | NUR ---
Patient attended all therapies today. She was given prn Tylenol with good effect this shift. Dr. Lee saw patient today and there were no new orders. Patient reported to this nurse that she would be discharging on Tuesday instead of this Tuesday as originally planned at care planning meeting today. This will be communicated to night nurse.
[2019-07-05 04:59] VITALS: BP 130/54; PULSE 80; TEMP 98.5
--- NOTE | 2019-07-05 08:14 | NUR ---
RESTING IN BED DURING SHIFT CHANGE REPORT TO DAY SHIFT NURSE, BED ALARM ENGAGED.
--- NOTE | 2019-07-05 08:41 | NUR ---
Report from MARCELLO Tenorio. Pt to chair with ST this morning, glasses in place, yellow gripper socks in place, call lt in reach.
--- NOTE | 2019-07-05 12:15 | NUR ---
Pt in chair for lunch, changed into clothes from pj's, she got her legs into one pant leg and needed assistance. Ed visiting. Pt states Dr. Chatterjee follows her foot wounds. Pt c/o beef chunks being too tought to chew.
--- NOTE | 2019-07-05 14:45 | NUR ---
Marina, IPR Director, reports that they would be able to keep the patient until Tuesday. Ester, with Dr. Chatterjee's office, also returned JAY JAY's phone call. Ester reports that she had not been working on getting any private duty services set up for the patient. She states she was working on [facility] and that [facility] partners with [facility]. JAY JAY attempted to contact the patient's to update and to discuss private duty services. JAY JAY left him a voicemail and will continue to follow.
--- NOTE | 2019-07-05 15:57 | NUR ---
JAY JAY contacted the patient's , Ed, and updated him on the discharge for Tuesday. Ed was in agreeance to this. SW also updated him on the information [facility] informed JAY JAY of. The patient's states that he would still be interested in getting private duty services started for the patient and would prefer [facility]. SW provided Ed with [facility]'s phone number. Ed reports that he plans to contact them to get services started for next Tuesday, 07/10. JAY JAY to continue to follow.
[2019-07-05 18:08] VITALS: BP 101/51; PULSE 94; TEMP 97.9
--- NOTE | 2019-07-05 18:19 | NUR ---
Pt in chair, alarm on, call lt in reach. Glasses and shoes in place.
--- NOTE | 2019-07-05 20:00 | NUR ---
PT MOD I WITH WALKER TO BR. PT STILL UNSTEADY. ALARMS SET FOR SAFETY- ALLOWED PT TO CALL FOR SBA TO BR. NEEDED ASSIT WITH DONING/ PULLING PJ PANTS UP. NEEDED ASSIST WITH LIFTING LEG UP INTO BED. SEE MAR FOR TYLENOL GIVEN FOR RHEUMATOID ARTHRITIS. FEET/ANKLES DEFORMED. CALL LIGHT IN REACH. BED ALARM SET.
--- NOTE | 2019-07-06 01:27 | NUR ---
PT ORIENTED AND PLEASANT BUT FORGETFUL. BED ALARM SET.
[2019-07-06 04:44] VITALS: BP 140/58; PULSE 73; TEMP 97.8
--- NOTE | 2019-07-06 13:03 | NUR ---
Removed dressings to BLE wounds. Cleansed with saline and gauze to pt's ability to tolerate.
--- NOTE | 2019-07-06 14:22 | NUR ---
BLE Wounds: Left le) Lateral ankle: 0.5 cm wound with yellow slough, silver gauze, mepilex, dated. 2) Dry scabs to lateral heel and proximal to pinky toe (or corns?) 3) Tip of great toe more red, lopez red, blanches with a pin-point yellow center. Dated. Covered with a cut piece of mepilex secured with paper tape. Right le) medial ankle: 1.1x1.7cm shallow ulcer with yellow slough, silver gauze, mepilex, dated. 2) Second toe open sore- worsening. Soaked scab encrusted old piece of silver gauze off to reveal 0.9x1cm open wound with dark ni purulent drainage. Surrounding joint is reddened and continues up the toe to the foot. Cleansed with saline and gauze. Applied cut mepilex foam and dated, secured with paper tape. 3) Skin between toes were dried thoroughly and placed strips of telfa between them, old pieces were clean when removed previously. Pt rosa maria well, gripper socks placed back on.
--- NOTE | 2019-07-06 15:42 | NUR ---
JAY JAY received a phone call from Edna at Dr. Chatterjee's office about the patient's still having some questions about [facility] and private duty services from [facility]. JAY JAY contacted the patient's , Ed. Ed states that he has a meeting with [facility] on Tuesday, 07/09, at 1100. JAY JAY contacted Roseanna at [facility] and confirmed that the patient's does have a meeting with them at that time. [facility] has been contacted and is aware of the patient's discharge date for Tuesday. JAY JAY to continue to follow.
[2019-07-06 17:10] VITALS: BP 106/55; PULSE 79; TEMP 98.1
--- NOTE | 2019-07-06 20:00 | NUR ---
Patient sitting up in recliner alert and oriented. Pleasant. HS meds along with tylenol reviewed and given. Snack of icecream given. Required assist with left shoe off, non-gripper socks on, pajama pants onto LLE and to feed arms into top/robe. Up to the bathroom and then rested back in bed. Nurse assists with covers and pillow under legs.
--- NOTE | 2019-07-06 20:46 | NUR ---
Pt called prior to amb to BR mod I today, did not assist her with these tasks. Bin dressing changes, see prior note. PCP Dr. Chatterjee's nurse Brigette states they will f/u about foot wounds. Pt stated that is who follows these. Bedside report to MARCELLO Mueller.
--- NOTE | 2019-07-06 22:48 | NUR ---
Patient rests with eyes closed. Respirations with ease.
--- NOTE | 2019-07-07 02:55 | NUR ---
Patient has been resting with eyes closed. Respirations with ease.
[2019-07-07 06:11] VITALS: BP 154/62; PULSE 83; TEMP 97.7
--- NOTE | 2019-07-07 09:09 | NUR ---
Patient resting in recliner at this time, call light in reach and independent with walking to the bathroom with walker. Patient denies any questions at this time.
[2019-07-07 17:37] VITALS: BP 98/58; PULSE 94; TEMP 97.6
--- NOTE | 2019-07-07 19:29 | NUR ---
Patient attended therapies today. Given prn tylenol with good effect. Went for a walk down [place] and back this afternoon. Denied any questions. Had visitors this afternoon. Reported off to night nurse.
[2019-07-07 19:32] VITALS: BP 114/55
--- NOTE | 2019-07-07 19:45 | NUR ---
HS meds along with tylenol reviewed and given. Patient removed right shoe but needed assistance with left. Alert and oriented. Pleasant.
--- NOTE | 2019-07-08 01:16 | NUR ---
Patient sits up on side of bed. States has been resting. Requests tylenol and given.
--- NOTE | 2019-07-08 02:56 | NUR ---
Patient rests with eyes closed. Respirations with ease.
--- NOTE | 2019-07-08 04:35 | NUR ---
Patient reports increased left hip/groin pain with lifting legs into bed following return from toileting. Tylenol given.
[2019-07-08 04:43] VITALS: BP 131/54; PULSE 63; TEMP 97.7
--- NOTE | 2019-07-08 10:37 | NUR ---
NSG ASSESSMENT COMPLETED THIS AM. WOUNDS ALL HAVE DRESSINGS CDI TO THE FEET. PT ABLE TO MOVE AROUND THE ROOM MOD I BUT CALLS FOR ASSIST REGULARLY. NURSE HERE TO PROVIDE ENCOURAGEMENT FOR PT TO TRY ON HER OWN. PT WAS ABLE TO PUT ON HER UNDERWARE WITH THE COUNTING MACHINE OPERATOR AND MINIMAL ASSIST OF NURSE. SHE WAS ABLE TO GET HER SHIRT AND PANTS ON HERSELF. NURSE PUT ON HER SHOES. DRESSINGS TO FEET FILI ARE CDI. CALL LIGHT INREACH.
[2019-07-08 16:24] VITALS: BP 113/73; PULSE 82; TEMP 97.9
--- NOTE | 2019-07-08 19:52 | NUR ---
Sitting up in chair. Denies pain. Dressings to bilat feet CDI. Patient requests to ambulate in halls. Assisted patient with use of walker. Patient returns to room. Denies further needs.
--- NOTE | 2019-07-08 20:50 | NUR ---
Patient sustained approximately one inch skin tear to left elbow. Patient says that she was moving arm while sitting in chair and she bumped her arm on he arm rest and it tore her skin. Site cleansed. Applied telfa directly on top of skin tear, wrapped with stanford, and then reinforced stanford with tape. Patient denies any needs at this time.
[2019-07-08 21:36] VITALS: BP 98/55
--- NOTE | 2019-07-08 23:27 | NUR ---
Lying in bed on left side with eyes closed. Respirations even and unlabored. NO signs or symptoms of discomfort noted at this time.
--- NOTE | 2019-07-09 00:41 | NUR ---
Assisted patient into bathroom to urinate. Voids without difficulty. Returns to bed. Gait slow but steady. Denies pain or any further needs at this time.
--- NOTE | 2019-07-09 02:30 | NUR ---
Lying in bed on left side with eyes closed. Respirations even and unlabored. No signs or symptoms of discomfort noted at this time.
[2019-07-09 04:14] VITALS: BP 145/66; PULSE 81; TEMP 97.9
--- NOTE | 2019-07-09 04:19 | NUR ---
Rating pain in left groin 4/10, describes as sharp. Per the patient this is a chronic pain that she has had for many years. Will administer Tylenol as prescribed at this time. Patient up to bathroom with use of walker. Gait slow and steady. Voids without difficulty. Returns to bed.
--- NOTE | 2019-07-09 05:56 | NUR ---
Lying in bed with eyes closed. Opens eyes when name called out. Takes a.m. medication without difficulty. Offered to assist patient into chair and patient declines at this time and requests to sleep a little bit longer. Denies further needs.
--- NOTE | 2019-07-09 14:04 | NUR ---
Patient attended all therapies today. Reported groin pain and given prn pain meds with good effect. Patient is waiting for to come and do her discharge orders. Patient's was called to update on the discharge time being later. He voiced understanding. Patient refused lunch today hoping that her would come by to bring her some snack food. Patient was given some vanilla ice cream and some chocolates per her request. Will continue to monitor.
--- NOTE | 2019-07-09 14:21 | NUR ---
The patient is to discharge this day, 07/09 home with [facility]. JAY JAY presented the IM form. The patient understood and signed the form. A copy was provided to the patient and original was placed in the chart. SW to fax discharge orders to [facility]. There are no additional needs at this time.
--- NOTE | 2019-07-09 15:40 | NUR ---
Patient Health Summary, Discharge Summary, and Home Meds printed and reviewed with patient and , Ed. Stressed importance of follow up appointments. Reviewed medications and called Rx for Lisinopril to pharmacy of choice. Belongings gathered by STUNNER ANIMAL/Christi including glasses, cell phone, dirty clothes from laundry hamper, seafood process worker, clothes and walker. Patient transported via wheelchair by STUNNER ANIMAL/Christi and seatbelted for ride home with . Patient and denied questions.
== END 2019-07-09 15:40 | disposition home health service (06) | DRG 947 ==
PROVIDERS: ADMIT Internal Medicine
DX: R53.81 Other malaise (principal); D66 Hereditary factor VIII deficiency; N39.0 Urinary tract infection, site not specified; I25.10 Atherosclerotic heart disease of native coronary artery without angina pectoris; M06.9 Rheumatoid arthritis, unspecified; I73.9 Peripheral vascular disease, unspecified; J44.9 Chronic obstructive pulmonary disease, unspecified; Z66 Do not resuscitate; D51.9 Vitamin B12 deficiency anemia, unspecified; E03.9 Hypothyroidism, unspecified; D63.8 Anemia in other chronic diseases classified elsewhere; B96.20 Unspecified Escherichia coli [E. coli] as the cause of diseases classified elsewhere; K59.00 Constipation, unspecified; F17.210 Nicotine dependence, cigarettes, uncomplicated; Z79.52 Long term (current) use of systemic steroids; Z95.5 Presence of coronary angioplasty implant and graft; Z86.711 Personal history of pulmonary embolism; Z88.5 Allergy status to narcotic agent
CPT/HCPCS: 99222-AI; 99231-AI; 99232-AI; 99238; J1650; J7512; J8610

== ENCOUNTER 2019-07-11 09:43 | Inpatient (IN) | payer MEDICARE, BC ==
[~2019-07-11] VITALS: Ht 167.6 cm; Wt 51.6 kg
[~2019-07-11 09:43] MED LIST changes: +OYSTER SHELL C500 MG PO; +ZESTRIL 10MG10 MG PO
[2019-07-11 10:28] LABS: BASO # 0.1 (0.0-0.2); BASO % 0.7 % (0.0-2.0); EOS # 0.1 (0.0-0.7); EOS % 0.8 % (0-4.0); GRAN # 8.7 (1.4-6.5); GRAN % 80.1 % (42.2-75.2); LYMPH # 0.8 (1.2-3.4); LYMPH % 7.4 % (20.0-51.0); MEAN CELL VOLUME 94 fl (80.0-100.0); MEAN CORPUSCULAR HGB CONC 32 g/dl (33.0-37.0); MEAN PLATELET VOLUME 9.1 fl (7.4-10.4); MONO # 1.1 (0.1-0.6); PLATELET COUNT 427 K/mm3 (130-400); RED BLOOD COUNT 2.78 M/mm3 (4.10-5.30)
[2019-07-11 10:30] LABS: HEMOGLOBIN 8.3 g/dl (12.5-16.0); MEAN CORPUSCULAR HEMOGLOBIN 30 pg (27.0-31.0)
[2019-07-11 10:38] LABS: INR 0.9 (0.8-3.0); PROTHROMBIN TIME 10.9 SECONDS (9.7-12.8)
[2019-07-11 10:41] LABS: PARTIAL THROMBOPLASTIN TIME 35.8 SECONDS (26.0-37.0)
[2019-07-11 10:42] LABS: ALANINE AMINOTRANSFERASE 25 U/L (9-52); ALBUMIN 3.3 gm/dL (3.5-5.0); ALKALINE PHOSPHATASE 64 U/L (50-136); ANION GAP 5 mmol/L (7-16); AST,SGOT 29 U/L (15-37); BILIRUBIN,TOTAL 0.4 mg/dL (0.0-1.0); BLOOD UREA NITROGEN 19 mg/dL (7-17); C-REACTIVE PROTEIN 6.3 mg/dL (0.0-0.9); CALCIUM 8.5 mg/dL (8.4-10.2); CARBON DIOXIDE 28 mmol/L (22-30); CHLORIDE 103 mmol/L (98-107); CREATININE, serum 0.82 (0.52-1.25); GLUCOSE 92 mg/dL (74-106); MAGNESIUM 1.9 mg/dL (1.6-2.3); PHOSPHOROUS 3.4 mg/dL (2.5-4.5); POTASSIUM 4.1 mmol/L (3.4-5.0); SODIUM 136 mmol/L (137-145); TOTAL PROTEIN 5.8 gm/dL (6.4-8.2)
[2019-07-11 10:51] LABS: TROPONIN-I < 0.012 ng/mL (0.000-0.035)
[2019-07-11 10:57] LABS: ERYTHROCYTE SEDIMENTATION RATE 22 mm/hr (0-30)
[2019-07-11 12:45] LABS: PH 7 (5-8); SQUAMOUS EPITHELIAL None Seen /hpf; URINE APPEARANCE Cloudy; URINE BACTERIA Rare /hpf; URINE BILIRUBIN Negative (NEGATIVE); URINE BLOOD Negative (NEGATIVE); URINE COLOR Yellow; URINE GLUCOSE Negative (NEGATIVE); URINE KETONE Negative (NEGATIVE); URINE LEUKOCYTE ESTERASE 3+ (NEGATIVE); URINE NITRATE Positive (NEGATIVE); URINE PROTEIN(semi-quant) 1+ (NEGATIVE); URINE UROBILINOGEN Negative (NEGATIVE)
[2019-07-11 13:33] LABS: COLLECTION METHOD CATHETER
[2019-07-11 14:26] VITALS: BP 160/89; PULSE 94; TEMP 98.1
--- NOTE | 2019-07-11 16:53 | NUR ---
VSS PT TO ROOM 344 @ 1400. ASSESSMENTS COMPLETE, IN TO SEE PATEINT SEE ORDERS.
--- NOTE | 2019-07-11 20:39 | NUR ---
Pt resting in bed. Alert and oriented with VSS. Here due to fall today and debility. Has port to right chest with LR running at 35. Has not gotten out of bed this shift yet but will attemp to use bed side commode when she has to go to the bathroom. Denies pain at this time. Denies any other needs. Call light within reach, will continue to monitor
--- NOTE | 2019-07-11 22:34 | NUR ---
Pt was changed by nurse and nurse aid. Pt did have incontinent brief with urine.
[2019-07-12 00:23] VITALS: BP 119/57; PULSE 86; TEMP 98.1
--- NOTE | 2019-07-12 03:50 | NUR ---
Pt has had uneventful night. Sleeping in bed. Call light within reach, will continue to monitor
[2019-07-12 04:08] VITALS: BP 134/84; PULSE 82; TEMP 98.1
--- NOTE | 2019-07-12 08:00 | NUR ---
Patient in bed resting. Alert and oriented x 3. Shift assessment complete. Patient states she is having mild hip pain 2/10, states it feels sore, chronic pain. Port to right chest with fluids infusing per orders. x1 assist to recliner, shuffling gait with walker and gait belt. Denies further needs at this time.
[2019-07-12 08:30] VITALS: BP 153/68; PULSE 99; TEMP 97.6
[2019-07-12 08:39] LABS: BASO # 0.1 (0.0-0.2); BASO % 0.3 % (0.0-2.0); EOS % 0.1 % (0-4.0); GRAN # 12.4 (1.4-6.5); GRAN % 83.3 % (42.2-75.2); LYMPH # 1.1 (1.2-3.4); LYMPH % 7.3 % (20.0-51.0); MEAN CELL VOLUME 94 fl (80.0-100.0); MEAN CORPUSCULAR HGB CONC 31 g/dl (33.0-37.0); MEAN PLATELET VOLUME 9.2 fl (7.4-10.4); MONO # 1.2 (0.1-0.6); MONO % 8.1 % (1.7-9.3); PLATELET COUNT 424 K/mm3 (130-400); RED BLOOD COUNT 2.75 M/mm3 (4.10-5.30); REDCELL DISTRIBUTION WIDTH-CV 17.9 % (11.5-14.5)
[2019-07-12 08:40] LABS: HEMOGLOBIN 8.1 g/dl (12.5-16.0); MEAN CORPUSCULAR HEMOGLOBIN 29 pg (27.0-31.0)
[2019-07-12 08:41] LABS: HEMATOCRIT 25.8 % (37.0-47.0)
[2019-07-12 08:51] LABS: CALCIUM 8.2 mg/dL (8.4-10.2); CREATININE, serum 0.71 (0.52-1.25); POTASSIUM 3.5 mmol/L (3.4-5.0)
--- NOTE | 2019-07-12 15:22 | NUR ---
JAY JAY met with the patient to discuss a discharge plan. The patient lives in [place] with her Ed. The patient has a walker uses daily and report independence with ADLs. The patient's PCP is Dr. Chatterjee and patient receives medications from [facility]. The patient does not have advanced directives in the EMR but report they are completed and designate her . Physical therapy is recommending a detention stay. JAY JAY presented Medicare.gov's list of detention facilities. The first choice is [facility] and second choice is [facility]. The patient signed the patient choice form then JAY JAY placed it in the chart. JAY JAY faxed referrals. The patient is a recently left [facility] on 07/09/19. She discharged home with with [facility] but the patient reports they did not visit before readmission. SW contacted [facility] and they confirmed they did not visit before readmission. supervisor ship maintenance services will continue to follow.
[2019-07-12 16:04] VITALS: BP 126/62; PULSE 78; TEMP 97.2
--- NOTE | 2019-07-12 18:37 | NUR ---
Patient has done well throughout the day, minimal needs. Requested tylenol this AM for mild generalized pain, patient states she typically takes tylenol at home. Medications given per orders. Patient tolerating diet well, encouraged increased fluid intake. Denies further needs at this time.Will repor off to second shift supervisor.
[2019-07-12 19:52] VITALS: BP 115/69; PULSE 91; TEMP 97.6
[2019-07-13 00:04] VITALS: BP 124/66; PULSE 88; TEMP 98
[2019-07-13 03:30] VITALS: BP 158/66; PULSE 75; TEMP 98.5
--- NOTE | 2019-07-13 06:57 | NUR ---
Patient rested well throughout the night. PRN Tylenol given x2 over night for pain to her bottom. States she hit her bottom when she fell at home. Ambulates to restroom with one assist from staff and walker. Shuffled, slow gait. Denies any further needs.
[2019-07-13 07:15] LABS: BASO # 0.1 (0.0-0.2); BASO % 0.5 % (0.0-2.0); EOS # 0.2 (0.0-0.7); EOS % 1.9 % (0-4.0); GRAN # 9.4 (1.4-6.5); LYMPH % 8.1 % (20.0-51.0); MEAN CELL VOLUME 96 fl (80.0-100.0); MEAN CORPUSCULAR HGB CONC 31 g/dl (33.0-37.0); MEAN PLATELET VOLUME 9.2 fl (7.4-10.4); MONO # 1.2 (0.1-0.6); MONO % 10.3 % (1.7-9.3); PLATELET COUNT 388 K/mm3 (130-400); RED BLOOD COUNT 2.46 M/mm3 (4.10-5.30); REDCELL DISTRIBUTION WIDTH-CV 17.8 % (11.5-14.5)
[2019-07-13 07:22] LABS: CREATININE, serum 0.69 (0.52-1.25); POTASSIUM 3.5 mmol/L (3.4-5.0)
[2019-07-13 07:41] VITALS: BP 151/71; PULSE 78; TEMP 97.2
[2019-07-13 07:42] LABS: HEMOGLOBIN 7.3 g/dl (12.5-16.0); MEAN CORPUSCULAR HEMOGLOBIN 30 pg (27.0-31.0)
[2019-07-13 07:43] LABS: HEMATOCRIT 23.7 % (37.0-47.0)
--- NOTE | 2019-07-13 08:00 | NUR ---
Patient sitting up on edge of bed eating breakfast. Alert and oriented x 4. Shift assessment complete. Port to right chest infusing fluids per orders. Skin tear to left elbow noted with dressing in place. Assisted patient to restroom, stand by assist with walker and gait belt, patient has a shuffling gait but steady. Denies further needs at this time.
--- NOTE | 2019-07-13 10:01 | NUR ---
JAY JAY faxed updates to Misael at [facility] and to Vance at [facility].
--- NOTE | 2019-07-13 11:13 | NUR ---
Misael from [facility] reports they can accept the patient for a fdc stay. SW contacted Vance from [facility] to inform her that the patient's first choice accepted and thanked her looking at the referral.
[2019-07-13 12:13] VITALS: BP 152/67; PULSE 68; TEMP 97.6
[2019-07-13] MEDS ORDERED: CIPRO 500MG TA500 MG PO (12:56)
[2019-07-13 13:45] VITALS: BP 152/67; PULSE 68; TEMP 97.6
--- NOTE | 2019-07-13 14:00 | NUR ---
The patient is to discharge this day, 07/13 to [facility] for a nursing home stay. Misael reports transportation time will be at 1430. The patient, patient's and the team were are in agreeance. SW faxed the discharge orders. There are no additional needs at this time.
--- NOTE | 2019-07-13 15:30 | NUR ---
Patient transfering to V. Assisted patient to dress and up to restroom. Denies pain at this time. Port to right chest deaccessed, heparin locked and site cleaned with clorehexidine wipes. Pressure dressing applied to port site. Patient out by wheelchair with fci staff.
== END 2019-07-13 15:45 | DRG 690 ==
LOC: COL.ER 09:43 → SURG 13:47
PROVIDERS: Emergency Medicine; Physician Assistant; ADMIT Student in an Organized Health Care Education/Training Program
DX: N39.0 Urinary tract infection, site not specified (principal); B96.5 Pseudomonas (aeruginosa) (mallei) (pseudomallei) as the cause of diseases classified elsewhere; M06.9 Rheumatoid arthritis, unspecified; J44.9 Chronic obstructive pulmonary disease, unspecified; I25.10 Atherosclerotic heart disease of native coronary artery without angina pectoris; E03.9 Hypothyroidism, unspecified; W19.XXXA Unspecified fall, initial encounter; G89.29 Other chronic pain; M25.552 Pain in left hip; D63.8 Anemia in other chronic diseases classified elsewhere; Z95.818 Presence of other cardiac implants and grafts; Z87.891 Personal history of nicotine dependence
CPT/HCPCS: 99222-AI; 99233-AI; 99239; A4216; J0696; J1650; J1720; J3010; J7120; J7512

== ENCOUNTER 2019-08-04 21:21 | Inpatient (IN) | payer MEDICARE, BC ==
[~2019-08-04] VITALS: Ht 170.2 cm; Wt 53.7 kg
[~2019-08-04 21:21] MED LIST changes: +CIPRO 500MG TA500 MG PO
[2019-08-04 22:03] LABS: BASO % 0.2 % (0.0-2.0); EOS % 0.1 % (0-4.0); GRAN # 10.7 (1.4-6.5); GRAN % 83.7 % (42.2-75.2); LYMPH # 0.8 (1.2-3.4); LYMPH % 6.4 % (20.0-51.0); MEAN CELL VOLUME 95 fl (80.0-100.0); MEAN CORPUSCULAR HGB CONC 31 g/dl (33.0-37.0); MEAN PLATELET VOLUME 8.8 fl (7.4-10.4); MONO # 1.1 (0.1-0.6); MONO % 8.6 % (1.7-9.3); PLATELET COUNT 323 K/mm3 (130-400); REDCELL DISTRIBUTION WIDTH-CV 17.9 % (11.5-14.5)
[2019-08-04 22:05] LABS: HEMATOCRIT 25.7 % (37.0-47.0); HEMOGLOBIN 7.9 g/dl (12.5-16.0); MEAN CORPUSCULAR HEMOGLOBIN 29 pg (27.0-31.0)
[2019-08-04 22:15] LABS: ALBUMIN 3.7 gm/dL (3.5-5.0); BILIRUBIN,TOTAL 0.2 mg/dL (0.0-1.0); CALCIUM 8.5 mg/dL (8.4-10.2); CREATININE, serum 0.65 (0.52-1.25); POTASSIUM 4.2 mmol/L (3.4-5.0); TOTAL PROTEIN 6.4 gm/dL (6.4-8.2)
[2019-08-04 22:32] LABS: TROPONIN-I 0.071 ng/mL (0.000-0.035)
[2019-08-05] VITALS (11 sets, daily range): BP systolic 123–174; BP diastolic 51–89; PULSE 77–107; TEMP 97.4–98.1
--- NOTE | 2019-08-05 00:58 | NUR ---
Report received from ER nurse. Patient admitted via ER cart to room 344. Alert and oriented but forgetful/pleasant. Denies pain at this time. States does have shortness of breath with exertion and moist couph noted. Rosalie SAMPSON into see patient. See admission assessment. Foot wounds shown to Rosalie. Wound right ankle and right second toe cleansed with saline, patted dry and silver guaze applied covered by aquacel. Patient reported pain to right inner ankle wound after dressing of bandaid removed. States dressings changed 2-3 days ago. Wound right second toe had embedded silver gauze and soaked off removing old drainage/scab now center pink. Patient states pain gone after wounds covered. Jake ARMENDARIZ gave heparin bolus and started heparin drip after ordered labs done. Heparin drip at 9.6 mls.
[2019-08-05 01:42] LABS: INR 0.9 (0.8-3.0); PROTHROMBIN TIME 10.9 SECONDS (9.7-12.8)
[2019-08-05 01:43] LABS: PARTIAL THROMBOPLASTIN TIME 23.5 SECONDS (26.0-37.0)
--- NOTE | 2019-08-05 03:54 | NUR ---
Solumedrol IV amd ceftin reviewed and given. Patient takes snack of toast. Patient incontinent of large amount of urine and removes clothing/nurse cleanses and applies pullup.
[2019-08-05 04:35] LABS: COLLECTION METHOD CLEAN CATCH
[2019-08-05 04:42] LABS: MUCOUS Present /lpf; PH 7 (5-8); SQUAMOUS EPITHELIAL None Seen /hpf; URINE APPEARANCE Hazy; URINE BACTERIA Rare /hpf; URINE BILIRUBIN Negative (NEGATIVE); URINE BLOOD 2+ (NEGATIVE); URINE COLOR Yellow; URINE GLUCOSE Negative (NEGATIVE); URINE KETONE Negative (NEGATIVE); URINE LEUKOCYTE ESTERASE 1+ (NEGATIVE); URINE NITRATE Negative (NEGATIVE); URINE PROTEIN(semi-quant) Negative (NEGATIVE); URINE UROBILINOGEN Negative (NEGATIVE)
--- NOTE | 2019-08-05 06:04 | NUR ---
Patient rests with eyes closed. Awakened earlier and denied pain. UA and respiratory panel to lab.
--- NOTE | 2019-08-05 10:25 | NUR ---
Patient sat of edge of bed & had toast for breakfast. Incontinet of urine, pericare & fresh linens provided, she did void on bedside commode. slow to move with walker & gaitbelt. Patient has a very hunched stature. She has RA. Patient Heparin drip stops per protocol- elevated hep xa will recheck per protocol. Patient has trouble getting her am pills swollowed. Given with applesauce. Cardiology rounded, echo ordered. tele on, vss. Will monitor.
[2019-08-05 12:12] LABS: CALCIUM 8.1 mg/dL (8.4-10.2); CREATININE, serum 0.65 (0.52-1.25); POTASSIUM 4.1 mmol/L (3.4-5.0)
[2019-08-05 12:24] LABS: MEAN CELL VOLUME 96 fl (80.0-100.0); MEAN CORPUSCULAR HGB CONC 31 g/dl (33.0-37.0); PLATELET COUNT 303 K/mm3 (130-400); RED BLOOD COUNT 2.42 M/mm3 (4.10-5.30); REDCELL DISTRIBUTION WIDTH-CV 17.9 % (11.5-14.5)
[2019-08-05 12:25] LABS: HEMATOCRIT 23.1 % (37.0-47.0); HEMOGLOBIN 7.1 g/dl (12.5-16.0); MEAN CORPUSCULAR HEMOGLOBIN 29 pg (27.0-31.0)
[2019-08-05 12:30] LABS: PARTIAL THROMBOPLASTIN TIME 35.5 SECONDS (26.0-37.0)
[2019-08-05 13:16] LABS: ANISOCYTOSIS 1+; BAND 4 % (0-10); HYPOCHROMIA 3+; LYMPHOCYTE 2 % (20.0-51.0); NEUTROPHILS 94 % (42.0-75.2); PLATELET ESTIMATE NORMAL (NORMAL)
--- NOTE | 2019-08-05 17:56 | NUR ---
Patient sitting up in chair. She continues to have incontinence. Pericare & breifs provided as needed. Heparin drip per orders. blood bank aware of transfusion orders. Reviewed transfusion with patient & will wait for it to be ready. Patient has tolerated meals, alternative meals orders per request. Patient denies the need for tylenol for pain at this time, she will take at bedtime
[2019-08-06] VITALS (7 sets, daily range): BP systolic 128–166; BP diastolic 57–76; PULSE 75–91; TEMP 97.1–98.3
[2019-08-06 02:36] LABS: HEMOGLOBIN 7.8 g/dl (12.5-16.0)
--- NOTE | 2019-08-06 05:24 | NUR ---
One unit PRBCs infused with no reactions. Vital signs stable. HepXa continues to be therapeutic, so no changes this shift. Patient denies pain. Portacath noted to right upper chest. Flushes with ease. Patient noted to have some shortness of breathe before PRBCs unfused. 3L oxygen applied to bring oxygen level up to above 90%. Oxygen was at 86% before oxygen applied. Patient stated she felt much better after oxygen was applied. Saturations were 100% throughout transfusion and oxygen was titrated off. Patient breathing easily and resting with eyes closed at this time. Will continue to monitor.
[2019-08-06 07:52] LABS: BASO % 0.1 % (0.0-2.0); GRAN # 15.4 (1.4-6.5); GRAN % 88.5 % (42.2-75.2); LYMPH % 5.8 % (20.0-51.0); MEAN CELL VOLUME 95 fl (80.0-100.0); MEAN CORPUSCULAR HGB CONC 31 g/dl (33.0-37.0); MEAN PLATELET VOLUME 9.4 fl (7.4-10.4); MONO # 0.8 (0.1-0.6); MONO % 4.4 % (1.7-9.3); PLATELET COUNT 298 K/mm3 (130-400); RED BLOOD COUNT 2.79 M/mm3 (4.10-5.30); REDCELL DISTRIBUTION WIDTH-CV 17.3 % (11.5-14.5)
[2019-08-06 07:55] LABS: HEMATOCRIT 26.4 % (37.0-47.0); HEMOGLOBIN 8.3 g/dl (12.5-16.0); MEAN CORPUSCULAR HEMOGLOBIN 30 pg (27.0-31.0)
[2019-08-06 07:56] LABS: CALCIUM 8.1 mg/dL (8.4-10.2); CREATININE, serum 0.63 (0.52-1.25)
--- NOTE | 2019-08-06 08:00 | NUR ---
Patient in bed resting. Alert and oriented x 3. Shift assessment complete. Patient up to bedside comode, x1 assist. IV to left AC leaking, discontinued. Port to right chest with heparin infusing per orders. Small ulcer noted on tip of left great toe. Scrape to inside of right ankle with foam dressing in place. Denies further needs at this time.
--- NOTE | 2019-08-06 16:24 | NUR ---
Solution Consultant met with patient to discuss discharge planning. Patient lives in [place] with her , Aakash (ph#[phone]). Patient sees Dr. Chatterjee for primary care and obtains medications from [facility] with no difficulties. Patient has a walker she uses at home. Patient states she has DPOA-HC although SW did not locate copy in the EMR. Patient reports she works with [employer]. SW contacted [employer] and faxed updates. Patient plans to return home upon discharge. SW to continue to follow.
[2019-08-06 16:56] LABS: HEMATOCRIT 25.9 % (37.0-47.0); HEMOGLOBIN 8.1 g/dl (12.5-16.0)
--- NOTE | 2019-08-06 18:37 | NUR ---
Patient has done well throughout the day. Heparin drip infusing per orders to right chest port. Has been sitting up in recliner most of the day. Up to bedside comode with x1 assist and walker. Denies pain throughout the day. Denies further needs at this time. Will report off to rn night.
[2019-08-07] VITALS (7 sets, daily range): BP systolic 152–195; BP diastolic 68–88; PULSE 66–93; TEMP 97.6–98.1
--- NOTE | 2019-08-07 08:00 | NUR ---
Patient in recliner, alert and oriented x 3, forgetful at times. Denies pain at this time. Eating breakfast. Up to restroom with stand by assist and walker. Educated patient on eliquis. Campbell further needs at this time.
[2019-08-07 08:11] LABS: MEAN CELL VOLUME 94 fl (80.0-100.0); MEAN CORPUSCULAR HGB CONC 31 g/dl (33.0-37.0); MEAN PLATELET VOLUME 9.4 fl (7.4-10.4); PLATELET COUNT 338 K/mm3 (130-400); RED BLOOD COUNT 2.83 M/mm3 (4.10-5.30); REDCELL DISTRIBUTION WIDTH-CV 17.3 % (11.5-14.5)
[2019-08-07 08:12] LABS: ALBUMIN 3.2 gm/dL (3.5-5.0); BILIRUBIN,TOTAL 0.3 mg/dL (0.0-1.0); CALCIUM 8.1 mg/dL (8.4-10.2); CREATININE, serum 0.67 (0.52-1.25); MAGNESIUM 2.1 mg/dL (1.6-2.3); TOTAL PROTEIN 5.8 gm/dL (6.4-8.2)
[2019-08-07 08:18] LABS: HEMATOCRIT 26.7 % (37.0-47.0); HEMOGLOBIN 8.3 g/dl (12.5-16.0); MEAN CORPUSCULAR HEMOGLOBIN 29 pg (27.0-31.0)
[2019-08-07 08:47] LABS: BAND 2 % (0-10); LYMPHOCYTE 3 % (20.0-51.0); MYELOCYTE 1 % (0-0); NEUTROPHILS 93 % (42.0-75.2)
[2019-08-07 08:48] LABS: OVALOCYTES 1+; PLATELET ESTIMATE NORMAL (NORMAL)
[2019-08-07 08:49] LABS: PROTEIN C ACTIVITY 109 % (70-150)
[2019-08-07 08:51] LABS: ANTI-THROMBIN III 108 % (72-128)
--- NOTE | 2019-08-07 10:33 | NUR ---
Management Information Systems Director spoke with ARIANNE Christensen who advised patient may need to consider SNF placement upon discharge. SW met with patient who states she does not feel she needs SNF placement. Patient reports between her , her walker, and [facility], she feels comfortable going home. JAY JAY collaborated the above information to ALEXIS Cody and MARCELLO Richey. JAY JAY will send orders upon discharge to [facility].
[2019-08-07 12:34] LABS: LUPUS ANTICOAGULANT INR 1.2 (0.7-1.3)
[2019-08-07 15:48] LABS: FACTOR V 99 % (70-120)
--- NOTE | 2019-08-07 17:54 | NUR ---
Patient has done well throughout the day. Up in recliner eating supper at this time. States she would like to take some tylenol for generalized aches at bedtime. Denies further needs at this time. Will report off to cnc machinist 2nd shift.
--- NOTE | 2019-08-07 20:30 | NUR ---
Patient was up to chair during assesment. Patient is somewhat confused at this time. Patient is oriented to self, and place, but unsure of time. Patient had questions about contact percautions and virus she is being treated for. This nurse answered questions to patient satisfaction. Patient lung sounds diminished, but clear in all quadrants. Cough remians, but non productive. Patient has port a cath that is accessed. Patient has been afrebrile, no complaints of nausea or vomiting.
[2019-08-08] VITALS (8 sets, daily range): BP systolic 123–173; BP diastolic 59–87; PULSE 64–97; TEMP 97.3–97.9
[2019-08-08 09:04] LABS: MEAN CELL VOLUME 93 fl (80.0-100.0); MEAN CORPUSCULAR HGB CONC 31 g/dl (33.0-37.0); MEAN PLATELET VOLUME 8.8 fl (7.4-10.4); PLATELET COUNT 358 K/mm3 (130-400); RED BLOOD COUNT 2.74 M/mm3 (4.10-5.30); REDCELL DISTRIBUTION WIDTH-CV 17.1 % (11.5-14.5)
[2019-08-08 09:05] LABS: HEMATOCRIT 25.5 % (37.0-47.0); HEMOGLOBIN 7.9 g/dl (12.5-16.0); MEAN CORPUSCULAR HEMOGLOBIN 29 pg (27.0-31.0)
[2019-08-08 09:16] LABS: CALCIUM 8.2 mg/dL (8.4-10.2); CREATININE, serum 0.76 (0.52-1.25); POTASSIUM 3.9 mmol/L (3.4-5.0)
[2019-08-08 09:30] LABS: BAND 3 % (0-10); LYMPHOCYTE 4 % (20.0-51.0); MYELOCYTE 1 % (0-0); NEUTROPHILS 82 % (42.0-75.2); PLATELET ESTIMATE NORMAL (NORMAL)
[2019-08-08 09:32] LABS: OVALOCYTES 2+; SCHISTOCYTES 1+
--- NOTE | 2019-08-08 10:25 | NUR ---
Patient sitting up in chair. Alert & oriented. Hospitalist team has rounded & patient having concerns about dismissal. Social work discussing this with her spouse. Will continue to monitor
--- NOTE | 2019-08-08 11:50 | NUR ---
Material Control Supervisor attended clinical rounds with the team. Patient is medically cleared for discharge but states she wants to stay another night because her does not have help this evening. SW asked patient who usually helps him and she states no one. Patient states she is going to have home health to help her at night time. SW advised patient that HH services are not overnight and she expressed understanding. Hospitalist inquired if patient feels she may benefit from a SNF stay before returning home. Patient declines. SW contacted patient's , Ed who reports discharge plan will be up to his . Ed confirmed that he does not have help at home outside of HH services to be provided by Patricia. Ed states he is coming in at 1500 and will meet with patient and SW. SW asked if referrals could be sent to SNFs to begin the review process and Ed states he prefers to wait until we can all meet with patient. SW to continue to follow.
[2019-08-08] MEDS ORDERED: OMNICEF 300MG300 MG PO (16:07)
[2019-08-08] MEDS ORDERED: ELIQUIS 5MG PO ×2 (16:07→16:08)
[2019-08-08] MEDS ORDERED: PEPCID 20MG TAB20 MG PO (16:09)
--- NOTE | 2019-08-08 16:39 | NUR ---
Programmer Analyst Consultant met with patient, patient's Ed, and Hospitalist to discuss discharge plan. Patient's states he does not feel comfortable at this time taking patient home. Patient agreeable to SNF placement. Patient's reports they would want to return to [facility] because they were just there last week. JAY JAY presented Patient Preference Form. Patient requested Ed provide signature. Ed provided signature on Preference Form that selected [facility]. JAY JAY placed form on chart. JAY JAY contacted Misael at [facility] who advised they could accept patient today. JAY JAY established transportation for patient and updated Hospitalist and RN, Carmela. JAY JAY presented IM form to patient who expressed understanding and provided signature. JAY JAY provided update to patient's as he left hospital to go home. JAY JAY faxed discharge orders to Misael at [facility]. JAY JAY provided update to [facility] on discharge plan. No additional concerns at this time.
--- NOTE | 2019-08-08 16:46 | NUR ---
Training And Documentation Specialist was contacted by Hospitalist who advised patient is not ready to discharge as there is now a concerns for a GI bleed. SW contacted Misael at [facility] and patient's to provide update. SW to continue to follow.
[2019-08-08 19:27] LABS: HEMATOCRIT 24.4 % (37.0-47.0); HEMOGLOBIN 7.8 g/dl (12.5-16.0); MEAN CELL VOLUME 91 fl (80.0-100.0); MEAN CORPUSCULAR HEMOGLOBIN 29 pg (27.0-31.0); MEAN CORPUSCULAR HGB CONC 32 g/dl (33.0-37.0); MEAN PLATELET VOLUME 8.9 fl (7.4-10.4); PLATELET COUNT 352 K/mm3 (130-400); RED BLOOD COUNT 2.68 M/mm3 (4.10-5.30); REDCELL DISTRIBUTION WIDTH-CV 17.2 % (11.5-14.5)
--- NOTE | 2019-08-08 19:39 | NUR ---
Patient resting in bed. She had an eventful afternoon. After hospitalist met with her spouse it was decided she would discharge to [facility], order were obtained. This nurse assisted patient in getting dressed for discharge & port was deaccessed. When assisted with emily care it was noted that patient had blood in her stool. After speaking with NOTCH GRINDER it seems she has had other stools this way today. Hospiliast team was informed. Orders were obtained. Discharge cancelled. Gi consult obtained & radiology consult. Patient to be NPo at midnight. Port re accessed per protocol. Protonix per orders. Hemocult still needs obtained. Report to night nurse
[2019-08-08 19:48] LABS: ANISOCYTOSIS 3+; HYPOCHROMIA 2+; LYMPHOCYTE 21 % (20.0-51.0); MYELOCYTE 1 % (0-0); NEUTROPHILS 73 % (42.0-75.2); PLATELET ESTIMATE NORMAL (NORMAL); POIKILOCYTOSIS 2+
[2019-08-08 19:49] LABS: BURR CELLS 1+
--- NOTE | 2019-08-08 21:00 | NUR ---
HS meds all reviewed and taken along with tylenol for left hip/groin arthritic pain. Hgb noted of 7.8. Patients was in visiting earlier and left for the night. Ulcer to right inner ankle dressing changed and had small amount of ni/brown drainage to previous dressing. Redressed with silver gauze and aquacel. Wound to 2nd toe right foot redressed with silver gauze and aquacel. No drainage on previous dressing. Both wounds were cleansed with saline prior to new dressing. Patient CGA with walker to the bathroom and voids clear yellow urine. Inner buttucks reddened/barrier cream applied.
[2019-08-09] VITALS (10 sets, daily range): BP systolic 110–149; BP diastolic 58–80; PULSE 82–112; TEMP 97.4–97.7
--- NOTE | 2019-08-09 02:00 | NUR ---
Rests with eyes closed. Respirations with ease.
--- NOTE | 2019-08-09 02:53 | NUR ---
Patient up to the bathroom assisted by art class model.
[2019-08-09 07:21] LABS: MEAN CELL VOLUME 94 fl (80.0-100.0); MEAN CORPUSCULAR HGB CONC 31 g/dl (33.0-37.0); MEAN PLATELET VOLUME 9.2 fl (7.4-10.4); PLATELET COUNT 365 K/mm3 (130-400); RED BLOOD COUNT 2.52 M/mm3 (4.10-5.30)
[2019-08-09 07:22] LABS: HEMATOCRIT 23.6 % (37.0-47.0); HEMOGLOBIN 7.3 g/dl (12.5-16.0); MEAN CORPUSCULAR HEMOGLOBIN 29 pg (27.0-31.0)
[2019-08-09 07:23] LABS: INR 1.3 (0.8-3.0); PROTHROMBIN TIME 15.5 SECONDS (9.7-12.8)
--- NOTE | 2019-08-09 07:50 | NUR ---
Patient in bed resting. Alert and oriented x 3. Assessment complete. Denies pain at this time Port to right chest without complications. Denies further needs at this time.
--- NOTE | 2019-08-09 08:13 | NUR ---
Patient down for IVC filter placement
--- NOTE | 2019-08-09 08:47 | NUR ---
SEE MERGE DOCUMENTATION FOR MEDICATION ADMINSITRATION TIMES AND INTRA/POST PROCEDURE SEDATION ASSESSMENTS.
--- NOTE | 2019-08-09 09:35 | NUR ---
Patient up from pathology laboratory aides teacher. Femoral site to right lower extremity with gauze, dressing is CDI. VSS denies further needs at this time.
--- NOTE | 2019-08-09 11:52 | NUR ---
Line Analyst met with Hospitalist and ARIANNE Amaya. Patient will not discharge today. SW contacted Vantage at [facility] and faxed updates.
--- NOTE | 2019-08-09 12:40 | NUR ---
Contacted hospitalist, tele called patient HR up to 130's with possible run of afib per telephone repairer. EKG obtained, will hold off on EGD for now.
--- NOTE | 2019-08-09 19:00 | NUR ---
BEDSIDE SHIFT REPORT RECEIVED FROM NICOLE GALLO. CONTINUED DROPLET ISOLATION FOR RSV. PT SITTING UP IN CHAIR. NO NEEDS AT THIS TIME. CHAIR ALARM SET. CALL LIGHT IN REACH. PT FORGETFUL BUT COOPERATIVE.
--- NOTE | 2019-08-09 19:25 | NUR ---
Patient has done well throughout the day, minimal needs. Has been up to restroom with walker and x1 assist. Denies pain throughout the day. Femoral site with dressing intact, CDI. Denies further needs at this time. Reported off to novelty printing machine operator.
--- NOTE | 2019-08-09 20:30 | NUR ---
PT YELLING OUT INTO THE MARTEL FOR ASSISTANCE. FORGETFUL. CALL LIGHT IN REACH. THOUGHT SHE WAS IN ANOTHER PART OF THE HOSPITAL. VERY FRAIL. COLOR VERY PALE. HBG 7,3 THIS AM. ASSISTED TO BSC. VOIDED SMALL AMT. SOME INCONT INTO PAD. HAD SMALL BLACK SMEAR PER RECTUM. PT DYSPNEIC WITH ACTIVITY. O2 SAT WNL ON RA. ASSIST INTO BEB. HOB KEPT ELEVATED. STARTED LR AT 50CC/HR PER RT CANELO CATH ORDERED EARLIER IN THE DAY. REVIEWED WITH PT PLAN FOR AM EGD AND NPO AT DC. ACCUCHECK 105. ENC GLUCERNA FOR HS SNACK TONIGHT. CALL LIGHT IN REACH. BED ALARM SET. GAVE TYLENOL FOR GENERAL ACHES.
[2019-08-10] VITALS (17 sets, daily range): BP systolic 118–159; BP diastolic 50–87; PULSE 55–90; TEMP 97.3–97.7
--- NOTE | 2019-08-10 00:22 | NUR ---
PATIENT REFUSED TREATMENT
--- NOTE | 2019-08-10 03:27 | NUR ---
PT INCONT IN BRIEFS OF URINE. ASSISTED PT UP TO RECLINER FROM BED. C/O DYSPNEA. NO CHANGE IN LUNG SOUNDS. O2 SAT 93% RA. VSS. RT NOTIFIED FOR SVN. CHAIR ALARM SET. CALL LIGHT NEXT TO HER.
--- NOTE | 2019-08-10 03:51 | NUR ---
TRANSFERRED TO BSC. VOIDED W/ INCONT IN BRIEF. HAD SM BLACK SMEAR STOOL. BACK TO RECLINER. CHAIR ALARM SET. CALL LIGHT IN REACH.
--- NOTE | 2019-08-10 05:00 | NUR ---
ASSISTED PT TO BSC. HAD MED LOOSE WITH SOFT FORMED BLACK STOOL AND SMALL INCONT IN BRIEFS. CLEANED UP ASSISTED BACK TO RECLINER. TYLENOL GIVEN FOR GENERAL DISCOMFORT. CHAIR ALARM SET. CALL LIGHT IN REACH.
--- NOTE | 2019-08-10 06:05 | NUR ---
LAB HERE FOR BLOOD DRAW FROM [facility]. IVF'S STOPPED X 10MIN. SAMPLE EASILY OBTAINED. ACCUCHECK 112 THIS AM.
[2019-08-10 07:30] LABS: BASO % 0.1 % (0.0-2.0); EOS # 0.1 (0.0-0.7); EOS % 0.5 % (0-4.0); GRAN # 9.9 (1.4-6.5); GRAN % 78.7 % (42.2-75.2); LYMPH # 1.2 (1.2-3.4); LYMPH % 9.7 % (20.0-51.0); MEAN CELL VOLUME 94 fl (80.0-100.0); MEAN CORPUSCULAR HGB CONC 31 g/dl (33.0-37.0); MEAN PLATELET VOLUME 9.4 fl (7.4-10.4); MONO # 1.2 (0.1-0.6); MONO % 9.7 % (1.7-9.3); PLATELET COUNT 347 K/mm3 (130-400); RED BLOOD COUNT 2.11 M/mm3 (4.10-5.30)
--- NOTE | 2019-08-10 07:37 | NUR ---
Sitting up in chair. Alert and oriented x4. Patient asks what time her EGD is today. Explained that the procedure is scheduled for 1200. Denies pain at this time. Port-a-cath to right chest with LR infusing at 50mL/hr. Dressings to right foot CDI. Patient has abrasion to right elbow that is open to air. Bruising noted to bilat arms. Patient reasks what time her procedure is and this nurse reexplained time of procedure. Patient asks if she can eat and I explain that she will not be able to eat until after her procedure. Patient denies further needs at this time.
[2019-08-10 07:40] LABS: ALBUMIN 2.8 gm/dL (3.5-5.0); BILIRUBIN,TOTAL 0.3 mg/dL (0.0-1.0); CALCIUM 7.9 mg/dL (8.4-10.2); CREATININE, serum 0.79 (0.52-1.25); POTASSIUM 3.9 mmol/L (3.4-5.0); TOTAL PROTEIN 5.1 gm/dL (6.4-8.2)
[2019-08-10 07:53] LABS: HEMATOCRIT 19.8 % (37.0-47.0); HEMOGLOBIN 6.2 g/dl (12.5-16.0); MEAN CORPUSCULAR HEMOGLOBIN 29 pg (27.0-31.0)
--- NOTE | 2019-08-10 10:34 | NUR ---
PRBCs verified by this nurse and MARCELLO Mott. Infusion started at 60mL/hr. Patient tolerates initiation of infusion without difficulty. Sitting up in chair. Alert and oriented.
--- NOTE | 2019-08-10 10:48 | NUR ---
Patient tolerates first 15 minutes of blood transfusion without adverse reaction. Rate increased to 150mL/hr. Patient remains sitting up in chair. Denies further needs at this time.
--- NOTE | 2019-08-10 11:31 | NUR ---
Continues to tolerate blood transfusion without adverse reactions. Remains sitting up in chair. Spouse in room with the patient. Denies any needs at this time.
--- NOTE | 2019-08-10 12:38 | NUR ---
Blood transfusion completed. Patient tolerates without difficulty. Endoscopy nurse, Emili, here to take patient for EGD via bed.
--- NOTE | 2019-08-10 13:52 | NUR ---
Brought to room via cot by endoscopy staff. Patient transfers from bed to chair with assist of one. Remains on oxygen at 2L/NC. Patient alert and oriented. Denies pain. Would like to eat. Explained that once we receive orders we will bring her food. Patient denies further needs.
--- NOTE | 2019-08-10 16:15 | NUR ---
Sitting up in chair with eyes open. Smiling. Denies pain. Denies any needs at this time.
--- NOTE | 2019-08-10 16:34 | NUR ---
Patient ambulates in room with assist of one and walker. Gait slow and steady. Denies need to urinate at this time. Returns to sitting up in chair. Denies further needs.
--- NOTE | 2019-08-10 16:42 | NUR ---
Watershed Manager faxed updates to Misael at [facility]. JAY JAY to continue to follow.
--- NOTE | 2019-08-10 20:00 | NUR ---
PT RESTING IN RECLINER. YELLING OUT TO STAFF IN HALLWAY. PT FORGETFUL. ASSISTED TO BSC. INCONTINENT URINE. WEARS BRIEFS FOR INCONT. RT GROIN DRSG REMOVED CDI. PT HAS SIGNIFICANT KYPHOSCOLOSOIS. PT UNSTEADY WITH WALKER. ASSISTED TO BED. SCD'S APPLIED. REFUSES MARIANA HOSE D/T POOR SKIN TURGOR. SKIN VERY FRAGILE. HAS NEW LT ELBOW SKIN TEAR. PLACED AQUACELL. PT READY FOR SLEEP. CALL LIGHT IN PLACE. BED ALARM SET.
[2019-08-11] VITALS (9 sets, daily range): BP systolic 126–151; BP diastolic 51–71; PULSE 50–75; TEMP 97.4–97.9
--- NOTE | 2019-08-11 03:24 | NUR ---
TELEMETRY CALLED. PT MASSIEL 47-56. PT SLEEPING WELL. SPOT CHECKED O2 SAT. 89% ON RA. ADDED O2 AT 1L/NC. RT NOTIFIED. PULSE 62-65.
--- NOTE | 2019-08-11 05:37 | NUR ---
UP IN CHAIR. C/O RT SHOULDER PAIN. TYLENOL GIVEN. LAB HERE FOR LINE DRAW.
[2019-08-11 07:02] LABS: BASO % 0.1 % (0.0-2.0); EOS # 0.2 (0.0-0.7); EOS % 1.6 % (0-4.0); GRAN # 9.2 (1.4-6.5); GRAN % 79.9 % (42.2-75.2); LYMPH # 0.9 (1.2-3.4); LYMPH % 8.1 % (20.0-51.0); MEAN CELL VOLUME 94 fl (80.0-100.0); MEAN CORPUSCULAR HGB CONC 31 g/dl (33.0-37.0); MEAN PLATELET VOLUME 9.2 fl (7.4-10.4); MONO # 1.1 (0.1-0.6); MONO % 9.3 % (1.7-9.3); PLATELET COUNT 327 K/mm3 (130-400); RED BLOOD COUNT 2.55 M/mm3 (4.10-5.30)
[2019-08-11 07:14] LABS: HEMATOCRIT 23.9 % (37.0-47.0); HEMOGLOBIN 7.5 g/dl (12.5-16.0); MEAN CORPUSCULAR HEMOGLOBIN 29 pg (27.0-31.0)
[2019-08-11 07:25] LABS: CALCIUM 7.8 mg/dL (8.4-10.2); CREATININE, serum 0.71 (0.52-1.25); POTASSIUM 3.6 mmol/L (3.4-5.0)
--- NOTE | 2019-08-11 08:20 | NUR ---
Patient heart rate in upper 50's to low 60's. night shift supervisor nurse Tanya RN, explained that the patient was running upper 40's to low 50's through the night. Dr. Gleason, cardiology, contacted and updated on patient heart rate. QVC 471. Orders received to decrease dose to 60mg BID.
--- NOTE | 2019-08-11 09:15 | NUR ---
Ambulates to bathroom, voids, returns to chair. Gait slow and steady. Patient denies pain. Bruising noted bilat to upper arms. Dressing to right elbow CDI. Dressings to right foot CDI. Dressing to port-a-cath on right upper chest coming loose. Patient denies needs at this time.
--- NOTE | 2019-08-11 09:35 | NUR ---
Dressing change performed to port-a-cath on right upper chest using sterile technique. Old dressing removed. Area cleaned with chloraprep and three alcohol swabs. Skin prep applied. New dressing placed. Patient tolerates without difficulty.
--- NOTE | 2019-08-11 13:43 | NUR ---
Patient requests Tylenol for shoulder pain that feels like a pinch. Tylenol administered as prescribed. IV fluids dc'd at this time.
--- NOTE | 2019-08-11 18:18 | NUR ---
Sitting up in chair watchingTV. Denies pain or any concerns at this time.
--- NOTE | 2019-08-11 21:00 | NUR ---
PT SITTING IN RECLINER. FAMILY HERE EARLIER. IN GOOD SPIRITS BUT VERY FATIGUED. PT TRANSFERRED TO BED. TYLENOL GIVEN FOR GENERAL ARTHRITIC PAIN. SCD'S ON. CALL LIGHT IN REACH. BED ALARM SET. NO BLOODY STOOL NOTED TODAY.
[2019-08-12 03:05] VITALS: BP 166/75; PULSE 69; TEMP 97.8
--- NOTE | 2019-08-12 03:35 | NUR ---
PT UP TO RECLINER. REQUESTED TYLENOL FOR GENERALIZED ACHES.
[2019-08-12 07:54] LABS: BASO % 0.2 % (0.0-2.0); EOS # 0.2 (0.0-0.7); EOS % 1.8 % (0-4.0); GRAN # 9.6 (1.4-6.5); GRAN % 79.7 % (42.2-75.2); LYMPH # 0.8 (1.2-3.4); LYMPH % 6.9 % (20.0-51.0); MEAN CELL VOLUME 94 fl (80.0-100.0); MEAN CORPUSCULAR HGB CONC 31 g/dl (33.0-37.0); MEAN PLATELET VOLUME 9.4 fl (7.4-10.4); MONO # 1.2 (0.1-0.6); MONO % 10.4 % (1.7-9.3); PLATELET COUNT 364 K/mm3 (130-400); RED BLOOD COUNT 2.68 M/mm3 (4.10-5.30); REDCELL DISTRIBUTION WIDTH-CV 16.2 % (11.5-14.5)
[2019-08-12 08:03] LABS: BILIRUBIN,TOTAL 0.3 mg/dL (0.0-1.0); CALCIUM 8.1 mg/dL (8.4-10.2); CREATININE, serum 0.73 (0.52-1.25); POTASSIUM 3.4 mmol/L (3.4-5.0); TOTAL PROTEIN 5.4 gm/dL (6.4-8.2)
[2019-08-12 08:10] LABS: HEMOGLOBIN 7.9 g/dl (12.5-16.0); MEAN CORPUSCULAR HEMOGLOBIN 29 pg (27.0-31.0)
[2019-08-12 08:11] LABS: HEMATOCRIT 25.2 % (37.0-47.0)
[2019-08-12 08:43] VITALS: BP 137/74; PULSE 69; TEMP 97.5
--- NOTE | 2019-08-12 09:00 | NUR ---
Patient sitting up in chair. Tolerated breakfast. All am meds given, Rt completed Ekg, Qtc interval less than 500 betapace given. Patient remains on Tele. Vss. Student nurse assisted with cares.
[2019-08-12 11:57] VITALS: BP 152/76; PULSE 61; TEMP 97.7
--- NOTE | 2019-08-12 14:06 | NUR ---
straightedge worker faxed updates including facesheet, nursing notes, progress notes, and medications to [facility] and [facility].
--- NOTE | 2019-08-12 15:38 | NUR ---
Patient family has visited this afternoon. Patient denies needing any tylenol at this time. Ready to get to [facility] tmrw.
[2019-08-12 16:53] VITALS: BP 136/71; PULSE 70; TEMP 98
--- NOTE | 2019-08-12 17:36 | NUR ---
Patient sitting up in chair. she tolerated dinner.
[2019-08-12 20:00] VITALS: BP 135/66; PULSE 74; TEMP 98.2
[2019-08-13] VITALS: BP 130/68; PULSE 63; TEMP 97.9
[2019-08-13 03:30] VITALS: BP 131/69; PULSE 65; TEMP 97.7
--- NOTE | 2019-08-13 05:55 | NUR ---
PT HAS MEDICATION ADMINISTERED EKGS THEREFORE 0700 EKGS WILL NOT BE DONE.
[2019-08-13 07:47] LABS: BASO % 0.1 % (0.0-2.0); EOS # 0.1 (0.0-0.7); EOS % 1.2 % (0-4.0); GRAN # 8.8 (1.4-6.5); GRAN % 78.2 % (42.2-75.2); LYMPH % 8.5 % (20.0-51.0); MEAN CELL VOLUME 94 fl (80.0-100.0); MEAN CORPUSCULAR HGB CONC 31 g/dl (33.0-37.0); MEAN PLATELET VOLUME 9.2 fl (7.4-10.4); MONO # 1.2 (0.1-0.6); MONO % 10.8 % (1.7-9.3); PLATELET COUNT 352 K/mm3 (130-400); RED BLOOD COUNT 2.53 M/mm3 (4.10-5.30); REDCELL DISTRIBUTION WIDTH-CV 16.2 % (11.5-14.5)
[2019-08-13 07:49] LABS: HEMATOCRIT 23.8 % (37.0-47.0); HEMOGLOBIN 7.3 g/dl (12.5-16.0); MEAN CORPUSCULAR HEMOGLOBIN 29 pg (27.0-31.0)
--- NOTE | 2019-08-13 08:00 | NUR ---
PATIENT IS DROWSY SITTING UP IN BEDSIDE CHAIR THIS AM. PLAN IS TO DISCHARGE BACK TO [facility] TODAY. DNR. RIGHT PORT TO INT. HGB 7.3 TODAY, UP FROM HGB 6.2 AFTER PREVIOUSLY GETTING 2 UNITS PRBC REPORTED BY BIOMEDICAL ENGINEERING TECHNICIAN. VSS. TELE INPLACE, IRREGULAR IN THE 60'S. STUDENT NURSE WORKING WITH PATIENT TODAY, SEE HEAD TO TOE ASSESSMENT. AM MEDS GIVEN BY STUDENT. PATIENT ON DROPLET PRECAUTIONS FOR RSV. NO OTHER NEEDS. CALL LIGHT IN REACH.
[2019-08-13 08:09] LABS: BILIRUBIN,TOTAL 0.4 mg/dL (0.0-1.0); CREATININE, serum 0.85 (0.52-1.25); POTASSIUM 3.6 mmol/L (3.4-5.0); TOTAL PROTEIN 5.4 gm/dL (6.4-8.2)
[2019-08-13 08:15] VITALS: BP 123/63; PULSE 61; TEMP 97.7
[2019-08-13 11:10] VITALS: BP 130/68; PULSE 62; TEMP 97.6
[2019-08-13 11:53] VITALS: BP 145/79; PULSE 97; TEMP 97.9
[2019-08-13] MEDS ORDERED: BETAPACE 120MG120 MG PO (12:24)
[2019-08-13] MEDS ORDERED: IPRATROPIUM BROM3 M1 IH (12:24)
[2019-08-13] MEDS ORDERED: PERFOROMIS20 MCG/2 M IH (12:24)
--- NOTE | 2019-08-13 14:00 | NUR ---
PATIENT DISCHARGING BACK TO [facility]. GAVE INFO PACKET TO CORPORATE PLANNING MANAGER. CALLED REPORT TO NURSE AT [facility]. DC'D TELE. FLUSHED AND DC'D RIGHT PORT, COVERED PORT SITE WITH BANDAID. PATIENT DRESSED AND READY FOR DISCHARGE.
--- NOTE | 2019-08-13 14:22 | NUR ---
Magistrate Assistant notified by Hospitalist that patient is cleared for discharge today. JAY JAY contacted Misael at [facility] and faxed updates. JAY JAY and Misael established transportation time for 1330. JAY JAY provided transport time to [facility] and Hospitalist. JAY JAY met with the patient who is in agreeance with discharge plan. JAY JAY presented IM form to patient who expressed understanding and provided signature. JAY JAY placed form in chart. JAY JAY contacted patient's Ed who is in agreeance with discharge to [facility] today. JAY JAY faxed discharge orders to [facility]. No additional concerns at this time.
== END 2019-08-13 14:00 | DRG 166 ==
LOC: COL.ER 21:21 → SURG 22:57
PROVIDERS: Emergency Medicine; Hospitalist; Internal Medicine Gastroenterology; Nurse Practitioner Family; Physician Assistant; Student in an Organized Health Care Education/Training Program; ADMIT Family Medicine
PROC: 06H03DZ Insertion of Intraluminal Device into Inferior Vena Cava, Percutaneous Approach (ICD-10-PCS; 2019-08-09)
PROC: 0DB68ZX Excision of Stomach, Via Natural or Artificial Opening Endoscopic, Diagnostic (ICD-10-PCS; principal; 2019-08-10 12:00)
DX: I26.99 Other pulmonary embolism without acute cor pulmonale (principal); I21.A1 Myocardial infarction type 2; K25.4 Chronic or unspecified gastric ulcer with hemorrhage; J44.1 Chronic obstructive pulmonary disease with (acute) exacerbation; I50.32 Chronic diastolic (congestive) heart failure; N39.0 Urinary tract infection, site not specified; C90.00 Multiple myeloma not having achieved remission; B97.4 Respiratory syncytial virus as the cause of diseases classified elsewhere; Z66 Do not resuscitate; I27.20 Pulmonary hypertension, unspecified; I48.91 Unspecified atrial fibrillation; M06.9 Rheumatoid arthritis, unspecified; E03.9 Hypothyroidism, unspecified; D63.8 Anemia in other chronic diseases classified elsewhere; I25.10 Atherosclerotic heart disease of native coronary artery without angina pectoris; I11.0 Hypertensive heart disease with heart failure; K22.4 Dyskinesia of esophagus; K44.9 Diaphragmatic hernia without obstruction or gangrene; D50.0 Iron deficiency anemia secondary to blood loss (chronic); I73.9 Peripheral vascular disease, unspecified; I08.3 Combined rheumatic disorders of mitral, aortic and tricuspid valves; M19.90 Unspecified osteoarthritis, unspecified site; Z86.711 Personal history of pulmonary embolism; Z95.5 Presence of coronary angioplasty implant and graft; Z86.73 Personal history of transient ischemic attack (TIA), and cerebral infarction without residual deficits; Z87.440 Personal history of urinary (tract) infections; Z79.52 Long term (current) use of systemic steroids; Z87.891 Personal history of nicotine dependence; Z88.5 Allergy status to narcotic agent; Z88.8 Allergy status to other drugs, medicaments and biological substances
CPT/HCPCS: 99231-AI; 99232-AI; 99233-AI; 99239; C9113; J1644; J2250; J2405; J2704; J2920; J2930; J3010; J7030; J7120; J7512; P9016; Q9967

== ENCOUNTER → 2019-08-20 | Outpatient (CLI) | payer MEDICARE, BC ==
[~2019-08-20] MED LIST changes: +BETAPACE 120MG120 MG PO; +ELIQUIS 5MG PO; +IPRATROPIUM BROM3 M1 IH; +OMNICEF 300MG300 MG PO; +PEPCID 20MG TAB20 MG PO; +PERFOROMIS20 MCG/2 M IH
[2019-08-20 14:38] LABS: COLLECTION METHOD CLEAN CATCH
[2019-08-20 14:50] LABS: MUCOUS Present /lpf; PH 6 (5-8); SQUAMOUS EPITHELIAL 0-2 /hpf; URINE APPEARANCE Cloudy; URINE BACTERIA Rare /hpf; URINE BILIRUBIN Negative (NEGATIVE); URINE BLOOD 2+ (NEGATIVE); URINE COLOR Yellow; URINE GLUCOSE Negative (NEGATIVE); URINE KETONE Trace (NEGATIVE); URINE LEUKOCYTE ESTERASE 1+ (NEGATIVE); URINE NITRATE Negative (NEGATIVE); URINE PROTEIN(semi-quant) 1+ (NEGATIVE); URINE RBC 0-2 /hpf
== END ==
LOC: ZLAB.STJ 13:59
PROVIDERS: Internal Medicine
DX: N39.0 Urinary tract infection, site not specified (principal)

== ENCOUNTER → 2019-09-04 | Outpatient (CLI) | payer MEDICARE, BC | LOC: COL.RAD 10:38 | DX: L97.519 Non-pressure chronic ulcer of other part of right foot with unspecified severity (principal); L97.529 Non-pressure chronic ulcer of other part of left foot with unspecified severity ==

== ENCOUNTER → 2019-09-19 | Outpatient (CLI) | payer MEDICARE, BC | LOC: ZCOL.LAB 15:00 | DX: J18.9 Pneumonia, unspecified organism (principal); R53.1 Weakness ==

== ENCOUNTER → 2019-09-27 | Outpatient (CLI) | payer MEDICARE, BC | LOC: ZCOL.LAB 17:54 | DX: S91.302A Unspecified open wound, left foot, initial encounter (principal); A49.02 Methicillin resistant Staphylococcus aureus infection, unspecified site; A49.8 Other bacterial infections of unspecified site ==

== ENCOUNTER → 2019-11-02 | Outpatient (CLI) | payer MEDICARE, BC | LOC: ZCOL.LAB 14:16 | DX: I83.013 Varicose veins of right lower extremity with ulcer of ankle (principal); L89.894 Pressure ulcer of other site, stage 4; Z86.19 Personal history of other infectious and parasitic diseases ==

== ENCOUNTER 2019-12-01 04:49 | Inpatient (IN) | payer MEDICARE, BC ==
[2019-12-01] VITALS (294 sets, daily range): BP systolic 109–137; BP diastolic 59–88; PULSE 86–101; TEMP 96.3–98.4; O2SAT 31–100
[~2019-12-01] VITALS: Ht 165.1 cm; Wt 49.3 kg
[2019-12-01 05:23] LABS: MEAN CELL VOLUME 84 fl (80.0-100.0); MEAN CORPUSCULAR HGB CONC 28 g/dl (33.0-37.0); MEAN PLATELET VOLUME 8.8 fl (7.4-10.4); PLATELET COUNT 375 K/mm3 (130-400); RED BLOOD COUNT 2.18 M/mm3 (4.10-5.30); REDCELL DISTRIBUTION WIDTH-CV 22.5 % (11.5-14.5)
[2019-12-01 05:26] LABS: PROTHROMBIN TIME 10.8 SECONDS (9.7-12.8)
[2019-12-01 05:27] LABS: ALBUMIN 3.3 gm/dL (3.5-5.0); BILIRUBIN,TOTAL 0.3 mg/dL (0.0-1.0); CALCIUM 8.4 mg/dL (8.4-10.2); CREATININE, serum 0.86 (0.52-1.25); POTASSIUM 4.2 mmol/L (3.4-5.0); TOTAL PROTEIN 5.7 gm/dL (6.4-8.2)
[2019-12-01] MEDS ORDERED: VALTREX 50500 MG/TAB PO (05:27)
[2019-12-01 05:29] LABS: HEMATOCRIT 18.3 % (37.0-47.0); HEMOGLOBIN 5.1 g/dl (12.5-16.0); MEAN CORPUSCULAR HEMOGLOBIN 23 pg (27.0-31.0)
[2019-12-01 05:42] LABS: TROPONIN-I 0.045 ng/mL (0.000-0.035)
[2019-12-01 05:56] LABS: LYMPHOCYTE 4 % (20.0-51.0); NEUTROPHILS 94 % (42.0-75.2); NUCLEATED RED BLOOD CELL 1 (0-6); PLATELET ESTIMATE NORMAL (NORMAL)
[2019-12-01 05:58] LABS: OVALOCYTES 2+
[2019-12-01 09:14] LABS: ARTERIAL BLD GAS O2 SATURATION 98.7 % (92-100); ARTERIAL BLD GAS TCO2 CT 23.2; ARTERIAL BLOOD GAS BASE EXCESS -4.4 (-2-2); ARTERIAL BLOOD GAS HCO3 21.8 meq/L (22-26); ARTERIAL BLOOD GAS PCO2 46.6 mmHg (35-45); ARTERIAL BLOOD GAS pH 7.29 (7.35-7.45)
--- NOTE | 2019-12-01 11:23 | NUR ---
PATIENT SETTLED TO ROOM. SHE IS ON 5L O2 VIA OM. VSS, PRBC INFUSING. GARCIA TO DEPENDENT DRAINAGE. SKIN ASSESSED. GENEREALIZED BRUISING TO FOREARMS AND BRUISE TO RIGHT SHOULDER. BRUISE TO LATERAL RIGHT HIP, SMALL BRUISE LOWER RIGHT BACK AT TOP OF HIP AREA. BLE IS SCALEY, DRY AND EXHIBITS YELLOW DRAINAGE. RIGHT INNER ANKLE HAS QUARTER SIZE ULCER WITH DRESSING ON IT. DRESSING IS CHANGED TO MEPILEX. COCCYX AND BOTTOM ARE FREE FROM SKIN ISSUES.
--- NOTE | 2019-12-01 14:41 | NUR ---
Vancomycin Initial Dosing Pharmacy Note Ordering provider: Audrey Álvarez W., MD Indication/duration: PNA LABS: WBC 23.6, SCr 0.86, CrCl ~30, BC pending Recommendation: vancomycin 15 mg/kg Loading dose: vancomying 1 gram Maintenance dose: vancomycin 750 mg every 24 hours Trough goal: 15-20 ug/mL. trough before 4th dose 12/04/19 @ 0830.
[2019-12-01 19:11] LABS: HEMATOCRIT 25.2 % (37.0-47.0); HEMOGLOBIN 7.6 g/dl (12.5-16.0)
--- NOTE | 2019-12-01 19:35 | NUR ---
RECEIVED REPORT FROM MARCELLO FARLEY. PT SITTING UP IN BED WATCHING TV. VSS. PT ON OXYMASK AT 3L. CALL LIGHT WITHIN REACH. FC PATENT AND DRAINING TO GRAVITY.
--- NOTE | 2019-12-01 20:10 | NUR ---
PT REQUESTING SOMETHING TO DRINK. NOTIFIED MENA JOY OF PT'S REQUEST AND HGB GOING FROM 5.1-7.6 AFTER 2 PRBC INFUSIONS. PHYSICIAN STATES TO KEEP PT NPO AT THIS TIME FOR POSSIBLE GI SCOPE TOMORROW.
[2019-12-02] VITALS (173 sets, daily range): BP systolic 99–128; BP diastolic 45–74; PULSE 96–100; TEMP 98–99.9; O2SAT 71–100
[2019-12-02 06:26] LABS: MEAN CELL VOLUME 85 fl (80.0-100.0); MEAN CORPUSCULAR HGB CONC 30 g/dl (33.0-37.0); MEAN PLATELET VOLUME 8.6 fl (7.4-10.4); RED BLOOD COUNT 2.94 M/mm3 (4.10-5.30); REDCELL DISTRIBUTION WIDTH-CV 20.2 % (11.5-14.5)
[2019-12-02 06:29] LABS: HEMATOCRIT 25.1 % (37.0-47.0); HEMOGLOBIN 7.5 g/dl (12.5-16.0); MEAN CORPUSCULAR HEMOGLOBIN 26 pg (27.0-31.0); PLATELET COUNT 243 K/mm3 (130-400)
[2019-12-02 06:37] LABS: BILIRUBIN,TOTAL 0.6 mg/dL (0.0-1.0); CALCIUM 7.4 mg/dL (8.4-10.2); CREATININE, serum 0.92 (0.52-1.25); MAGNESIUM 1.9 mg/dL (1.6-2.3); POTASSIUM 3.5 mmol/L (3.4-5.0); TOTAL PROTEIN 5.4 gm/dL (6.4-8.2)
[2019-12-02 06:58] LABS: TROPONIN-I 0.038 ng/mL (0.000-0.035)
[2019-12-02 10:02] LABS: ANISOCYTOSIS 4+; BAND 2 % (0-10); HYPOCHROMIA 1+; NEUTROPHILS 97 % (42.0-75.2); PLATELET ESTIMATE NORMAL (NORMAL)
[2019-12-02 17:33] LABS: HEMATOCRIT 23.8 % (37.0-47.0); HEMOGLOBIN 7.2 g/dl (12.5-16.0)
[2019-12-03] VITALS (7 sets, daily range): BP systolic 114–148; BP diastolic 53–74; PULSE 74–111; TEMP 97.6–99.5
--- NOTE | 2019-12-03 03:49 | NUR ---
Patient noted to be intermittently confused. Bhatti catheter continues to be in place and patient noted to pull the stat-lock off her leg and noted to be messing with the tube multiple times throughout the night. Educated frequently what the tube is and why its important to leave it alone. Patient continues on 5L oxymask. Oxygen saturations remain above 90%. Patient continues to complain about being NPO, despite utilizing mouth swabs to help with her dry mouth. Patient continues on antiobitcs as ordered. Ucler to right foot remains dressed and CDI. Patient up and walked 10 feet before turning around and lying back down. Bilateral lower extremities noted to have skaly, dry, flaky skin. Will continue to monitor.
[2019-12-03 07:02] LABS: MEAN CELL VOLUME 89 fl (80.0-100.0); MEAN CORPUSCULAR HGB CONC 29 g/dl (33.0-37.0); MEAN PLATELET VOLUME 9.5 fl (7.4-10.4); PLATELET COUNT 260 K/mm3 (130-400); RED BLOOD COUNT 2.93 M/mm3 (4.10-5.30)
[2019-12-03 07:12] LABS: HEMOGLOBIN 7.6 g/dl (12.5-16.0); MEAN CORPUSCULAR HEMOGLOBIN 26 pg (27.0-31.0)
[2019-12-03 07:18] LABS: ALBUMIN 3.1 gm/dL (3.5-5.0); BILIRUBIN,TOTAL 0.5 mg/dL (0.0-1.0); CALCIUM 7.6 mg/dL (8.4-10.2); CREATININE, serum 0.99 (0.52-1.25); POTASSIUM 3.7 mmol/L (3.4-5.0); TOTAL PROTEIN 5.5 gm/dL (6.4-8.2)
[2019-12-03 08:13] LABS: BAND 5 % (0-10); HYPOCHROMIA 1+; LYMPHOCYTE 2 % (20.0-51.0); METAMYELOCYTE 1 % (0-0); NEUTROPHILS 88 % (42.0-75.2); NUCLEATED RED BLOOD CELL 1 (0-6); OVALOCYTES 1+; PLATELET ESTIMATE NORMAL (NORMAL); SCHISTOCYTES 2+
--- NOTE | 2019-12-03 09:43 | NUR ---
Assessnent complete. Pt lying in bed requesting repeatidly for water. I continue to educate her that she cannot have anything by mouth until speech comes to see her. She is alert and partially oriented. She denies pain at this time. She wants to get up and walk around. Blood sugar on labs this am was 62, rechecked and it was 59. hypoglycemix protocol was put in place per Mónica HOWELL, 1/2 amp was administered. BS rechecked at 15 mins -60 rechecked at 30 mins 91. She states she feels a little short of breath even with oxymask. AAudible crackles and expiratory wheezes at this time. IV site was leaking on assessment, prior to dextrose administration a new site was started by MARCELLO Lauren in her Right forarm. Left forarm and Left AC sites were removed. New sites flushes well, is bandaged and IV fluids are currently running. No other needs were expressed at this time. Call light is in reach. Will continue to monitor.
--- NOTE | 2019-12-03 13:00 | NUR ---
Pt called me into room and stated that she felt as though she could not breath. Her oxymax was not on her face at this time. I replaced it into position. Pt had a very crakley cough audible at this time. RT was called to assess whether she needed more oxygen. Minor succtioning was performed on the pt by RT therapist, minimal mucus removed. Pt was repositioned in bed as well. MENA Sales was notified, Dr. Joseph also came to visit the pt. Possible aspiration of food while assessment with speech therapy is suspected. Pt will remain NPO until speech sees her in the morning because of this. BiPaP was ordered and did improve pts status. Continuing to monitor oxygen status.
--- NOTE | 2019-12-03 14:04 | NUR ---
Senior Accounting Clerk met with patient to discuss discharge planning. Patient lives in [place] with her , Aakash (ph#[phone]) [address] Dr. Chatterjee for primary care. Patient obtains medications from [facility] pharmacy and has [facility]. Patient states she has a son, Deejay that lives in [place]. Patient uses a walker for ambulation. PT is recommending SNF for patient upon discharge. SW contacted patient's , Aakash who is in agreement. Aakash advised first preference would be [facility] and second preference would be [facility]. SW met with patient who confirmed these preferences. SW contacted Tequila at [facility] and Misael at [facility] then faxed referrals. SW contacted Britt at [facility] and provided update on discharge plan. SW also faxed clinical updates. SW to continue to follow.
--- NOTE | 2019-12-03 15:00 | NUR ---
Per Mónica HOWELL stopping D5 and NS due to possible fluid overload. She did not state when to restart fluids. Continuing to monitor blood sugars.
[2019-12-03 15:07] LABS: ARTERIAL BLD GAS O2 SATURATION 99.1 % (92-100); ARTERIAL BLD GAS TCO2 CT 29.1; ARTERIAL BLOOD GAS BASE EXCESS -1.8 (-2-2); ARTERIAL BLOOD GAS HCO3 26.9 meq/L (22-26)
[2019-12-03 15:08] LABS: ARTERIAL BLOOD GAS PCO2 71.5 mmHg (35-45); ARTERIAL BLOOD GAS PO2 146.1 mmHg (80-100); ARTERIAL BLOOD GAS pH 7.19 (7.35-7.45)
--- NOTE | 2019-12-03 15:41 | NUR ---
Creative Arts Therapist spoke with Tequila at [facility] who advised they are likely able to accept patient upon discharge. SW to continue to follow and will continue to fax updates.
[2019-12-03 17:03] LABS: ARTERIAL BLD GAS O2 SATURATION 98.1 % (92-100); ARTERIAL BLOOD GAS PCO2 61.4 mmHg (35-45); ARTERIAL BLOOD GAS PO2 96.3 mmHg (80-100); ARTERIAL BLOOD GAS pH 7.31 (7.35-7.45)
--- NOTE | 2019-12-03 21:34 | NUR ---
Resting in bed. Repositioned. Assesment complete. Expiratory wheezing with diminished lung sounds. Heart sounds irregular. Bowels active x4. Pulses present. Right foot edema +1 with ulcer covered in dressing. Dressing CDI. Generalized bruising present to arms and legs. Bilateral lower extremity scaling and flaking present. INT right AC and right forearm without complications. Bhatti to dependent drainage. Clear yellow urine. Care provided. Denies pain. Denies needs at this time. Call light in reach. Will monitor.
--- NOTE | 2019-12-03 22:23 | NUR ---
2210: Patient having increased work of breathing. Oxygen saturation 92% on 4 liters. Increased to 5 liters and repositioned. Patient reports generalized body pain and would like something for pain. 2215: Spoke with Rosalie UMANA- obtain ABG and place patient back on bipap. Will come see patient. Notified respiratory. 2222: Rosalie UMANA in room. Placed back on bipap. Reports chest pain due to difficulty breathing. Rosalie on phone with patient .
--- NOTE | 2019-12-03 23:06 | NUR ---
Per Rosalie provide patient with PRN zofran and morphine. Patient on bipap and morphine and zofran given. Work of breathing decreased and patient resting comfortable. Will continue to monitor.
--- NOTE | 2019-12-04 00:10 | NUR ---
Resting in bed. Denies needs. Bipap on. Call light in reach.
--- NOTE | 2019-12-04 02:31 | NUR ---
Patient respiratory rate 24. Reports generalized discomfort. Repositioned and provided with PRN morphine. Will monitor.
[2019-12-04 03:57] VITALS: BP 123/64; PULSE 81; TEMP 97.5
--- NOTE | 2019-12-04 04:06 | NUR ---
Resting in bed comfortably in no obvious distress. Call light in reach. Remains on bipap.
--- NOTE | 2019-12-04 06:33 | NUR ---
Patient remained on bipap throughout night. X2 doses of morphine for pain control. Otherwise uneventful. Resting in bed this AM. Call light in reach.
--- NOTE | 2019-12-04 07:09 | NUR ---
Report given to MARCELLO Perales
[2019-12-04 08:06] VITALS: BP 97/75; PULSE 99; TEMP 97.6
--- NOTE | 2019-12-04 08:35 | NUR ---
Assessment complete. Pt laying in bed on BiPap machine. Pain is evident with moaning with respirations. PRN Morphine provided. Pulses are readily palpable. Respirations are tachypnic. Lung sounds were difficult to asculatate due to moaning with expirations. Patient denied repositioning. Small movements and tactile sentations are painful for her. Blood sugar stable this morning at 108. Will continue to monitor through the day.
[2019-12-04 09:02] LABS: BASO % 0.2 % (0.0-2.0); EOS # 0.1 (0.0-0.7); EOS % 0.5 % (0-4.0); GRAN # 13.3 (1.4-6.5); GRAN % 88.2 % (42.2-75.2); LYMPH # 0.3 (1.2-3.4); LYMPH % 2.1 % (20.0-51.0); MEAN CELL VOLUME 89 fl (80.0-100.0); MEAN CORPUSCULAR HGB CONC 28 g/dl (33.0-37.0); MEAN PLATELET VOLUME 9.3 fl (7.4-10.4); MONO # 1.2 (0.1-0.6); PLATELET COUNT 238 K/mm3 (130-400); REDCELL DISTRIBUTION WIDTH-CV 21.2 % (11.5-14.5)
[2019-12-04 09:04] LABS: HEMATOCRIT 24.9 % (37.0-47.0); MEAN CORPUSCULAR HEMOGLOBIN 25 pg (27.0-31.0)
[2019-12-04 09:11] LABS: CALCIUM 7.8 mg/dL (8.4-10.2); POTASSIUM 3.2 mmol/L (3.4-5.0)
--- NOTE | 2019-12-04 10:15 | NUR ---
Dr Bradley advises that pt is being placed on comfort care orders based on his conversation with pt's . At Dr Bradley's request I did call her and advise him that we will allow him and whoever is helping him with transport to visit his at the hospital today. has fractured pelvis and will come by wheelchair with grandson around 1130 he thinks. He was given visitation instructions and verbalized understanding. I also asked him about where he might wish to have Candy Maddox go for her last days, if she is able to survive until tomorrow. He would prefer the [facility] and did request that I contact them today for possible transfer tomorrow. I spoke kaitlynn Brenner at [facility] and she reports they could admit either today or tomorrow. Will discuss with her at today's visit.
--- NOTE | 2019-12-04 11:52 | NUR ---
Palliative Consult ordered and patient placed on comfort measures. JAY JAY collaborated with Krystyna Palliative RN who advised patient's and grandson will be up to visit at 1130. Krystyna faxed referral to [facility] and looking at discharge tomorrow if possible. SW provided update to Tequila at [facility] and Misael at [facility] as referrals for skilled were sent yesterday. SW to continue to follow.
--- NOTE | 2019-12-04 11:56 | NUR ---
Aakash, and grandson Pancho came to be with Candy Maddox for about 30 minutes and then requested to go home. was very thankful for the visit and thanked us repeatedly for allowing this to happen. Suopporto provided by this manual writer and also Dr Morales and nurse Angella. Pt did moan at intervals during visit but does not appear in pain as much as her only means to communicate. We will plan for discharge to [facility] tomorrow, if appropriate and will continue to provide comfort care here until she is discharged. She was provided with a comfort care quilt and explanation was provided to and grandson.
--- NOTE | 2019-12-04 12:00 | NUR ---
pT HAS BEEN STABLE WITH PRN PAIN MEDICATION. SHE MOANS BOTH TO COMMUNICATE AND WITH PAIN. CONTINUING TO MONITOR HER CLOSELY. FAMILY WAS ABLE TO VISIT AND PLAN IS FOR HOSPICE CARE TOMORROW. WILL CONTINUE TO MONITOR.
--- NOTE | 2019-12-04 14:08 | NUR ---
COMFORT CARE MEASURES HAVE BEEN PUT INTO PLACE. PT WAS MOANING AND EXPRESSING pain. PRN ROXANOL PROVIDED, ORAL CARE PROVIDED. PT REPOSITIONED. NO FURTHER NEEDS, WILL CONTINUE TO MONITOR.
--- NOTE | 2019-12-04 14:21 | NUR ---
Pt seemed to be distressed by the bipap mask and the effects of the bipap. I did call and speak with Dr Bradley about stopping the bipap and monitoring and he was very agreeable to that. I also notified her Edward of this action and he reported "Do whatever you need to keep her comfortable". Bianca Pizano oracle data warehouse developer and I removed the bipap and telemetry as per orders given. Pt appeared much more comfortable after this was done.
--- NOTE | 2019-12-04 14:23 | NUR ---
PATIENT WAS TAKEN OFF BIPAP MACHINE AT 1415. SHE IS STABLE AND SEEMS TO BE MORE COMFORTABLE. WILL CONTINUE TO MONITOR.
--- NOTE | 2019-12-04 15:08 | NUR ---
Pt continues to appear more comfortable when she is checked on at this time. She is no longer moaning and appears more peaceful.
--- NOTE | 2019-12-04 15:38 | NUR ---
Pt remains comfortable at this time. Blinds are open and have lifted her spirits. No moaning or acute signs of distress at this time. Will continue to monitor.
--- NOTE | 2019-12-04 16:20 | NUR ---
Pt remains stable and comfortable at this time. She shows no signs of distress or pain at this time. She is sleeping for the first time while in my care.
--- NOTE | 2019-12-04 18:05 | NUR ---
Pt continues to be comfortable with no signs of pain or distress since repositioning and PRM pain medication. She continues to rest peacfully at this time.
--- NOTE | 2019-12-04 21:00 | NUR ---
Resting in bed. Does not appear in in discomfort at this time. Repositioned. Patient lethargic with minimal responsiveness. Will continue to monitor.
--- NOTE | 2019-12-05 00:34 | NUR ---
Resting in bed comfortably. Call light in reach. Will monitor.
--- NOTE | 2019-12-05 06:11 | NUR ---
Patient had uneventful night. Slow shallow breathing this AM. Responsive to touch with moaning. Rest comfortable when undistrubed. Call light in reach. Will continue to monitor.
--- NOTE | 2019-12-05 07:28 | NUR ---
Report given to MARCELLO Christensen
[2019-12-05] MEDS ORDERED: IPRATROPIUM BROM3 M1 IH (08:31)
[2019-12-05] MEDS ORDERED: TRANSDERM-0.5 MG/21 TD (08:33)
[2019-12-05] MEDS ORDERED: ZOFRAN ODT4 MG PO (08:33)
[2019-12-05] MEDS ORDERED: LORAINT SL (08:39)
[2019-12-05] MEDS ORDERED: ROXANOL 20MG20 MG/ML SL (08:39)
--- NOTE | 2019-12-05 08:53 | NUR ---
Pt is resting peacefully in her room with shallow respirations using 02 by mask for comfort. She does respond minimally to touch, and did say a few words to staff during repositioning. We are anticipating admission to hospice house at 1000 with her arriving around [address] Bradley has rounded on her and orders have been submitted, prescriptions sent to [facility]. director of cloud servicesAngella, is working on transportation by EMS.
--- NOTE | 2019-12-05 08:54 | NUR ---
Lying in bed with eyes closed. Opens eyes when name called out. Patient follows most commands. Respirations shallow. Oxymask on at 4L. Patient will occasionally move arms and legs. Repositioned at this time to left side. Bhatti draining clear yellow urine.
[2019-12-05 09:00] VITALS: BP 97/75; PULSE 99; TEMP 97.6
--- NOTE | 2019-12-05 09:12 | NUR ---
Report called to Gabriela at [facility].
--- NOTE | 2019-12-05 09:57 | NUR ---
EMS here to take patient to [facility]. Provided EMS with all personal belongings. Patient transferred from bed to EMS cot with assist of three, tolerates with little difficulty. Discharge packet provided to EMS staff.
--- NOTE | 2019-12-05 10:00 | NUR ---
Contacted patient spouse and informed him that EMS is transporting patient at this time to [facility]. Spouse verbalizes understanding and denies further questions.
--- NOTE | 2019-12-05 10:05 | NUR ---
Patient ready for discharge today. JAY JAY collaborated with Krystyna Palliative RN who advised Wallace Pizano requested 1000 admit time. JAY JAY contacted [facility] to set transport time for 0945. JAY JAY placed completed EMS forms on patient chart and made copies. JAY JAY contacted patient's , Aakash to provide transport time. JAY JAY also provided transport time to Jordana [facility]END[facility]. JAY JAY faxed discharge orders and COVID assessment to Wallace Pizano. No additional needs at this time.
== END 2019-12-05 10:01 | disposition hospice, home (50) | DRG 871 ==
LOC: COL.ER 04:49 → MEDICAL 09:24 → ICU 09:24 → COL.ER 09:24 → ICU 12-02 19:48 → MEDICAL 12-02 19:48
PROVIDERS: Emergency Medicine; Nurse Practitioner Family; ADMIT Student in an Organized Health Care Education/Training Program
DX: A41.9 Sepsis, unspecified organism (principal); I21.4 Non-ST elevation (NSTEMI) myocardial infarction; J18.1 Lobar pneumonia, unspecified organism; J96.00 Acute respiratory failure, unspecified whether with hypoxia or hypercapnia; K92.1 Melena; D62 Acute posthemorrhagic anemia; I50.32 Chronic diastolic (congestive) heart failure; J44.0 Chronic obstructive pulmonary disease with (acute) lower respiratory infection; E44.0 Moderate protein-calorie malnutrition; Z68.1 Body mass index [BMI] 19.9 or less, adult; M06.9 Rheumatoid arthritis, unspecified; I25.10 Atherosclerotic heart disease of native coronary artery without angina pectoris; I11.0 Hypertensive heart disease with heart failure; Z20.828 Contact with and (suspected) exposure to other viral communicable diseases; Z66 Do not resuscitate; E03.9 Hypothyroidism, unspecified; Z51.5 Encounter for palliative care; M19.90 Unspecified osteoarthritis, unspecified site; D63.8 Anemia in other chronic diseases classified elsewhere; E16.2 Hypoglycemia, unspecified; Z86.711 Personal history of pulmonary embolism; Z87.891 Personal history of nicotine dependence; Z79.01 Long term (current) use of anticoagulants; Z87.440 Personal history of urinary (tract) infections
CPT/HCPCS: 99223-AI; 99232-AI; 99233-AI; 99239; C9113; J0456; J1940; J2270; J2405; J2543; J3370; J7030; J7042; J7050; P9016; Q9967